=== PATIENT | female | born 1955 | race Hispanic/Latino ===

== ENCOUNTER 2016-12-29 17:40 | Inpatient (IN) | payer BC ==
[2016-12-29 17:42] VITALS: BMI 24.0
[2016-12-29] MEDS ORDERED: Sodium Chloride 0.9% 1,000 ML IV STA (18:01)
[2016-12-29] MEDS ORDERED: Morphine 4 mg/ml ISec IVP STA (18:01)
--- NOTE | 2016-12-29 18:06 | ED PDOC ---
Arrival/HPI - General Chief Complaint: Abdominal Pain Time Seen by Provider: 12/29/16 17:48 Historian: Patient - History of Present Illness Narrative History of Present Illness (Text): 12/29/16 18:02 Patient is a 61 year old female with no abdominal surgical history presents to the emergency department with gradual onset of right sided abdominal pain since 02:00 today. She states pain is constant and getting progressively worse. Patient states she did not eat yesterday. She reports she took PeptoBismol, Tums , and Rolaids with no relief. Patient reports regular bowel movement, solid, non -bloody, at 14:00 today. She is also complaining of nausea. Denies urinary symptoms or back pain. Time/Duration: 24 hours Symptom Onset: Gradual Symptom Course: Worsening Severity Level: Severe Past Medical History - Provider Review Nursing Documentation Reviewed: Yes - Cardiac Hx Cardiac Disorders: No - Pulmonary Hx Respiratory Disorders: No - Neurological Hx Neurological Disorder: No - HEENT Hx HEENT Disorder: No - Renal Hx Renal Disorder: No - Endocrine/Metabolic Hx Hypothyroidism: Yes - Hematological/Oncological Hx Blood Disorders: No - Integumentary Hx Dermatological Disorder: No - Musculoskeletal/Rheumatological Hx Musculoskeletal Disorders: No - Gastrointestinal Hx Gastrointestinal Disorders: No - Genitourinary/Gynecological Hx Genitourinary Disorders: No - Psychiatric Hx Psychophysiologic Disorder: No Hx Substance Use: No - Surgical History Hx Thyroidectomy: Yes Hx Tonsillectomy: Yes - Anesthesia Hx Anesthesia: Yes Hx Anesthesia Reactions: No Hx Malignant Hyperthermia: No Family/Social History - Physician Review Nursing Documentation Reviewed: Yes Family/Social History: Unknown Family HX Smoking Status: Never Smoked Hx Alcohol Use: Yes Frequency of alcohol use: Daily Hx Substance Use: No Allergies/Home Meds Allergies/Adverse Reactions: Allergies Penicillins Allergy (Verified 12/29/16 17:42) RASH Home Medications: Home Meds Medication Instructions Recorded Confirmed Levothyroxine [Synthroid] 100 mcg PO DAILY 12/29/16 12/29/16 Review of Systems - Review of Systems Constitutional: absent: Fevers Eyes: absent: Vision Changes ENT: absent: Hearing Changes Respiratory: absent: SOB Cardiovascular: Chest Pain. absent: Edema, QUICK Gastrointestinal: Abdominal Pain, Nausea. absent: Constipation, Diarrhea, Vomiting, Appetite Changes, Hematochezia, Hematemesis Genitourinary Female: absent: Dysuria, Frequency, Hematuria Musculoskeletal: absent: Back Pain, Neck Pain Skin: absent: Rash Neurological: absent: Headache, Dizziness, Focal Weakness Endocrine: absent: Diaphoresis Physical Exam - Physical Exam Narrative Physical Exam (Text): Head: Atraumatic. Normocephalic. Eyes: PERRL. EOMI. Conjunctivae are not pale. ENT: Mucous membranes are moist and intact. Oropharynx is clear and symmetric. Neck: Supple. Full ROM. No JVD. No lymphadenopathy. Cardiovascular: Regular rate. Regular rhythm. No murmurs, rubs, or gallops. Distal pulses are 2+ and symmetric. Pulse symmetric in both upper extremities. Pulmonary/Chest: No evidence of respiratory distress. Clear to auscultation bilaterally. No wheezing, rales or rhonchi. Abdominal: Non-distended. Rebound and guarding in RLQ and RUQ. No pulsatile masses. Negative Avalos's sign. No hepatomegaly. Positive bowel sounds. Rectal: no gross bleeding reported Back: No CVA tenderness. No midline tenderness. Extremities: No edema. No cyanosis. No clubbing. Full range of motion in all extremities. No calf tenderness. Skin: Skin is pale and diaphoretic. Neurological: Alert, awake, and oriented. Motor and sensory exam intact. No slurred speech. No meningeal signs. Psychiatric: Good eye contact. Normal interaction, affect, and behavior. 12/29/16 21:23 Vital Signs Reviewed: Yes Vital Signs Temp Pulse Resp BP Pulse Ox 12/29/16 19:49 88 17 145/50 L 100 12/29/16 18:58 73 17 148/83 100 12/29/16 18:50 73 17 148/83 100 12/29/16 17:46 97.4 F L 74 15 147/85 100 Temperature: Afebrile Blood Pressure: Normal Pulse: Regular Respiratory Rate: Normal Appearance: Positive for: Uncomfortable Pain Distress: Severe Mental Status: Positive for: Alert and Oriented X 3 Medical Decision Making ED Course and Treatment: Differential Diagnosis include but are not limited to: Appendicitis vs ruptured viscus vs gallstones Plan: Will obtain CT of the Abdomen/Pelvis CT noncontrast, Morphine, Zofran, and emergent surgical consult. Progress Notes: Patient seen immediately upon arrival. Reports sudden onset of abdominal pain at 2 am, did not eat during the day due to lack of appetite. Denies symptoms before going to bed. States abdominal pain will radiate to chest. EKG with no acute st elevations. Chest pain not exertional. No sob. Pain is severe and palpable. Based on exam, surgery emergently consulted and ct ordered. IV morphine ordered, no relief in pain. Pain remains right sided and palpable. No pulsatile masses. IV dilaudid ordered for persistent pain. PROCEDURE: CT Abdomen and Pelvis without Oral or IV contrast. Rolling Down Machine Operator : DR. Shaw, Aria Willis MD Report Date : 12/29/2016 18:41:09 IMPRESSION: Distended gallbladder. No calcified gallstones evident. Correlate clinically for possibility of acute cholecystitis. 3.8 cm right midpole and 3.8 cm left upper pole low-density lesions appear cystic. Nonobstructing 9 x 4 mm right upper pole calculus. Surgery consult present in ED. Dr. Higuera has also evaluated patient in ED. Ultrasound ordered. Lactate elevated. WBC elevated. Initial AST, ALT, alk phos unremarkable. Patient ordered iv fluid bolus, code sepsis called as elevated lactate, wbc, and suspicion of intraabdominal infection. PCN allergy noted, patient started on levaquin and flagyl. Ultrasound ordered. EKG with no acute st changes. Initial troponin unremarkable. Plan to admit to telemetry for sepsis and acute abdomen. Dr. Iglesias consulted for surgery consultation. GI consultation requested. Ultrasound ordered. EXAM: US Abdomen Complete FINDINGS: Gallbladder: Appears mildly dilated. Contains multiple large gallstones. Gallbladder wall measures 4 mm in thickness (normal less than 3 mm) No evidence of pericholecystic fluid. Reportedly negative sonographic Avalos's sign. Common bile duct: Mildly dilated, measuring 7.6 mm (normal less than 6 mm). Liver: Demonstrates mildly increased parenchymal echogenicity, most likely secondary to mild fatty infiltration. Otherwise within normal limits in appearance. Appears normal in size, measuring 13.6 cm in length. Normal flow seen in the main portal vein on color and Doppler imaging. Pancreas: Imaged portions appear unremarkable. Right kidney: Contains a 4 x 3.6 cm simple cystic lesion, located in the renal pelvis, most likely a peripelvic cyst. There is also a 10 x 8 mm nonobstructing right renal stone, located in the mid pole region. Otherwise within normal limits in appearance. Measures 11.2 cm in length. No evidence of hydronephrosis. Left kidney: Contains a 3.6 x 3.3 cm simple appearing cyst, in the upper pole. Otherwise within normal limits in appearance. Measures 11.1 cm in length. No evidence of hydronephrosis. Spleen: Within normal limits in appearance. Measures 10.8 cm in length. Aorta: Imaged portions appear unremarkable. IVC: Imaged portions appear unremarkable. IMPRESSION: Gallstones, associated with minimal gallbladder wall thickening and gallbladder dilatation. No evidence of pericholecystic fluid or a positive sonographic Avalos's sign. The wall thickening could be due to chronic cholecystitis, however, early acute cholecystitis is not excluded entirely, and recommend clinical correlation. Mild dilatation of the common bile duct, cause not identified. Recommend correlation with LFTs for laboratory evidence of biliary obstruction. Otherwise, no evidence of significant acute process. Nonobstructing right renal stone. Bilateral renal cysts. See above for remaining findings. Dictated and Authenticated by: Mulu Salomon MD 12/29/2016 9:00 PM Eastern Time ([place] & [place]) Ultrasound findings and labs and exam reviewed with Dr. Higuera, and I discussed case directly with GI Dr. Siu. HIDA scan ordered, to be evaluated by GI and surgical team. Patient admitted, treatment plan reviewed with patient. - Lab Interpretations Microbiology Results: Microbiology Results 12/29/16 18:30 Blood Blood Culture - Preliminary NO GROWTH AFTER 3 DAYS 12/29/16 18:00 Blood Blood Culture - Preliminary NO GROWTH AFTER 3 DAYS 12/29/16 19:19 Urine Urine Culture - Final Escherichia Coli Lab Results: 12/29/16 18:00 12/29/16 18:00 Lab Results 12/29/16 19:19: Urine Color Yellow, Urine Appearance Sl cloudy, Urine pH 8.0, Ur Specific [place] 1.020, Urine Protein Negative, Urine Glucose (UA) Negative, Urine Ketones 40 H, Urine Blood Trace-intact H, Urine Nitrate Negative, Urine Bilirubin Negative, Urine Urobilinogen 0.2, Ur Leukocyte Esterase Trace H, Urine RBC 0 - 2, Urine WBC 0 - 2, Ur Epithelial Cells 3 - 4, Urine Bacteria Large 12/29/16 18:00: Sodium 139, Chloride 100, Potassium 3.4 L, Carbon Dioxide 23, Anion Gap 19, BUN 12, Creatinine 0.7, Est GFR ( Amer) > 60, Est GFR (Non- Af Amer) > 60, Random Glucose 144 H, Calcium 10.4, Phosphorus 2.6, Magnesium 1.6 L, Total Bilirubin 1.7 H, AST 24, ALT 28, Alkaline Phosphatase 104, Lactate Dehydrogenase 364, Total Creatine Kinase 119, Troponin I < 0.01, Total Protein 7.8, Albumin 5.0 H, Globulin 2.9, Albumin/Globulin Ratio 1.7, Amylase 69, Lipase 25 12/29/16 18:00: pO2 57 H, VBG pH 7.54 H, VBG pCO2 31.0 L, VBG HCO3 26.5, VBG Total CO2 27.5, VBG O2 Sat (Calc) 94.4 H, VBG Base Excess 4.5 H, VBG Potassium 3.4 L, Sodium 140.0, Chloride 103.0, Glucose 151 H, Lactate 2.6 H, FiO2 21.0, Venous Blood Potassium 3.4 L 12/29/16 18:00: PT 12.5 H, INR 1.16 H, APTT 28.0 12/29/16 18:00: WBC 14.2 H, RBC 3.94, Hgb 13.4, Hct 37.9, MCV 96.2, MCH 34.0, MCHC 35.4, RDW 12.5, Plt Count 212, MPV 9.8, Gran % 72.6 H, Lymph % (Auto) 23.5 , [place] % (Auto) 3.8, Eos % (Auto) 0.0 L, Baso % (Auto) 0.1, Gran # 10.31 H, Lymph # 3.3, [place] # 0.5, Eos # 0.0, Baso # 0.01 - RAD Interpretation Radiology Orders: 12/29/16 18:00 CHEST PORTABLE [RAD] Stat 12/29/16 18:11 ABD & PELVIS W/O PO OR IV CONT [CT] Stat 12/29/16 18:53 ABDOMEN COMPLETE [US] Stat Campus Manager: Radiologist - EKG Interpretation EKG Interpretation (Text): 12/29/16 21:25 EKG at 18:19 normal sinus rhythm rate of 72 Interpreted by ED Physician: Yes Type: 12 lead EKG - Medication Orders Current Medication Orders: Enoxaparin Sodium (Lovenox) 40 mg SC DAILY INÉS PRN Reason: Protocol Hydromorphone HCl (Dilaudid) 0.5 mg IVP Q4H PRN PRN Reason: Pain, Mild (1-3) Last Admin: 01/01/17 05:15 Dose: 0.5 mg Re-Assess: [facility] Pain Assessment Document 01/01/17 06:15 AE (Rec: 01/01/17 06:37 AE [id number]) Pain Reassessment Is this a pain reassessment? Yes Sleep Is patient sleeping during reassessment? Yes Hydromorphone HCl (Dilaudid) 1 mg IVP Q4H PRN PRN Reason: Pain, moderate (4-7) Last Admin: 01/02/17 04:12 Dose: 1 mg Re-Assess: [facility] Pain Assessment Document 01/02/17 05:12 HD (Rec: 01/02/17 07:17 HD [id number]) Pain Reassessment Is this a pain reassessment? Yes Sleep Is patient sleeping during reassessment? No Presence of Pain Presence of Pain No Meropenem 1g/NS 100mL IVPB (Meropenem 1g/Ns 100ml Ivpb) 1 gm in 100 mls @ 100 mls/hr IVPB Q8 INÉS PRN Reason: Protocol Stop: 01/09/17 13:09 Last Admin: 01/02/17 07:23 Dose: 100 mls/hr Lactated Ringer's (Lactated Ringer's) 1,000 mls @ 100 mls/hr IV .Q10H [facility] Last Admin: 01/02/17 05:05 Dose: 100 mls/hr Levothyroxine Sodium (Synthroid) 100 mcg PO 0600 [facility] Last Admin: 01/02/17 05:10 Dose: 100 mcg Metoclopramide HCl (Reglan) 10 mg IVP Q6 PRN PRN Reason: Nausea/Vomiting Ondansetron HCl (Zofran Inj) 4 mg IVP Q4H PRN PRN Reason: Nausea/Vomiting Pantoprazole Sodium (Protonix Inj) 40 mg IVP DAILY [facility] Last Admin: 01/01/17 09:19 Dose: 40 mg Discontinued Medications Bupivacaine HCl (Marcaine 0.5%) Confirm Administered Dose 30 ml .ROUTE .STK-MED ONE Stop: 01/01/17 14:41 Last Admin: 01/01/17 17:31 Dose: 30 ml Famotidine (Pepcid) 20 mg IVP STAT STA Stop: 12/29/16 19:37 Last Admin: 12/29/16 21:14 Dose: 20 mg Fentanyl (Fentanyl) Confirm Administered Dose 100 mcg .ROUTE .STK-MED ONE Stop: 01/01/17 15:11 Fentanyl (Fentanyl) Confirm Administered Dose 100 mcg .ROUTE .STK-MED ONE Stop: 01/01/17 16:54 Glycopyrrolate (Robinul) Confirm Administered Dose 0.6 mg .ROUTE .STK-MED ONE Stop: 01/01/17 17:32 Hydromorphone HCl (Dilaudid) 1 mg IVP STAT STA Stop: 12/29/16 18:21 Last Admin: 12/29/16 18:24 Dose: 1 mg Re-Assess: [facility] Pain Assessment Document 12/29/16 19:24 OCS (Rec: 12/29/16 22:02 [id number] Pain Reassessment Is this a pain reassessment? Yes Sleep Is patient sleeping during reassessment? Yes Hydromorphone HCl (Dilaudid) 1 mg IVP STAT STA Stop: 12/29/16 18:48 Last Admin: 12/29/16 18:56 Dose: 1 mg Re-Assess: [facility] Pain Assessment Document 12/29/16 19:56 OCS (Rec: 12/29/16 22:02 [id number][facility] Pain Reassessment Is this a pain reassessment? Yes Sleep Is patient sleeping during reassessment? Yes Hydromorphone HCl (Dilaudid) 2 mg IVP STAT STA Stop: 12/29/16 19:32 Last Admin: 12/29/16 19:46 Dose: 2 mg Re-Assess: [facility] Pain Assessment Document 12/29/16 20:46 OCS (Rec: 12/29/16 22:02 [id number][facility] Pain Reassessment Is this a pain reassessment? Yes Sleep Is patient sleeping during reassessment? Yes Hydromorphone HCl (Dilaudid) 0.5 mg IVP Q15M PRN PRN Reason: Pain, moderate (4-7) Stop: 01/01/17 19:45 Last Admin: 01/01/17 18:20 Dose: 0.5 mg Re-Assess: [facility] Pain Assessment Document 01/01/17 19:20 HD (Rec: 01/02/17 07:17 HD [id number]) Pain Reassessment Is this a pain reassessment? Yes Sleep Is patient sleeping during reassessment? No Presence of Pain Presence of Pain No Sodium Chloride (Sodium Chloride 0.9%) 1,000 mls @ 1,000 mls/hr IV .Q1H ST[facility] Stop: 12/29/16 19:00 Last Admin: 12/29/16 18:23 Dose: 1,000 mls/hr Sodium Chloride 1,910 ml/ IV (SUPPLIES) 1,910 mls @ 3,810.18 mls/hr IV ONCE ONE PRN Reason: 60 ML/KG/HR Stop: 12/29/16 18:31 Last Admin: 12/29/16 19:06 Dose: 3,810.18 mls/hr Metronidazole (Flagyl) 500 mg in 100 mls @ 100 mls/hr IVPB STAT STA PRN Reason: Protocol Stop: 12/29/16 19:46 Last Admin: 12/29/16 18:58 Dose: 100 mls/hr Levofloxacin/Dextrose (Levaquin 750mg) 750 mg in 150 mls @ 100 mls/hr IVPB STAT STA Stop: 12/29/16 20:18 Last Admin: 12/29/16 21:14 Dose: 100 mls/hr Levofloxacin/Dextrose (Levaquin 500mg) 500 mg in 100 mls @ 100 mls/hr IVPB DAILY INÉS Last Admin: 12/30/16 09:18 Dose: 100 mls/hr Metronidazole (Flagyl) 500 mg in 100 mls @ 100 mls/hr IVPB Q8 INÉS PRN Reason: Protocol Last Admin: 12/30/16 06:55 Dose: 100 mls/hr Potassium Chloride (Potassium Chloride 10 Meq/100 Ml) 10 meq in 100 mls @ 100 mls/hr IVPB ONCE ONE Stop: 12/29/16 22:09 Last Admin: 12/29/16 21:54 Dose: 100 mls/hr Aztreonam (Azactam 1 Gm) 100 mls @ 100 mls/hr IV Q8 INÉS PRN Reason: Protocol Stop: 01/08/17 22:01 Last Admin: 12/30/16 06:55 Dose: 100 mls/hr Potassium Chloride 20 meq/ (Sodium Chloride) 1,010 mls @ 100 mls/hr IV .Q10H6M [facility] Stop: 12/30/16 20:56 Last Admin: 12/30/16 11:45 Dose: 100 mls/hr Sodium Chloride (Sodium Chloride 0.9%) 1,000 mls @ 75 mls/hr IV .[id number] [facility] Stop: 01/01/17 19:46 Last Admin: 01/01/17 19:00 Dose: Iohexol (Omnipaque 240 (50 Ml)) Confirm Administered Dose 50 ml .ROUTE .STK-MED ONE Stop: 12/29/16 18:12 Iohexol (Omnipaque 350 100 Ml) Confirm Administered Dose 350 mg .ROUTE .STK-MED ONE Stop: 12/29/16 18:12 Iohexol (Omnipaque 240 (50 Ml)) Confirm Administered Dose 50 ml .ROUTE .STK-MED ONE Stop: 01/01/17 14:41 Last Admin: 01/01/17 17:32 Dose: 20 ml Ketorolac Tromethamine (Toradol) 15 mg IVP STAT STA Stop: 12/30/16 00:33 Last Admin: 12/30/16 01:19 Dose: 15 mg Levothyroxine Sodium (Synthroid) 100 mcg PO DAILY [facility] Last Admin: 01/01/17 09:19 Dose: 100 mcg Metoclopramide HCl (Reglan) 10 mg IVP STAT STA Stop: 12/29/16 22:28 Last Admin: 12/30/16 00:20 Dose: 10 mg Midazolam HCl (Versed Inj) Confirm Administered Dose 2 mg .ROUTE .STK-MED ONE Stop: 01/01/17 15:11 Morphine Sulfate (Morphine) 4 mg IVP STAT STA Stop: 12/29/16 18:02 Last Admin: 12/29/16 18:22 Dose: 4 mg Re-Assess: [facility] Pain Assessment Document 12/29/16 19:22 OCS (Rec: 12/29/16 22:01 OCS [id number]) Pain Reassessment Is this a pain reassessment? Yes Sleep Is patient sleeping during reassessment? Yes Presence of Pain Presence of Pain No Neostigmine Methylsulfate (Neostigmine Methylsulfate) Confirm Administered Dose 3 mg IV .STK-MED ONE Stop: 01/01/17 17:40 Ondansetron HCl (Zofran Inj) 4 mg IVP ONCE ONE Stop: 12/29/16 18:02 Last Admin: 12/29/16 18:23 Dose: 4 mg Ondansetron HCl (Zofran Inj) 4 mg IVP ONCE ONE Stop: 12/29/16 18:57 Last Admin: 12/29/16 18:59 Dose: 4 mg Ondansetron HCl (Zofran Inj) 4 mg IVP Q6 PRN PRN Reason: Nausea/Vomiting Last Admin: 12/29/16 21:54 Dose: 4 mg Ondansetron HCl (Zofran Inj) 4 mg IVP ONCE PRN PRN Reason: Nausea/Vomiting Stop: 01/01/17 23:50 Phenylephrine HCl (Phenylephrine Inj) Confirm Administered Dose 10 mg .ROUTE .STK-MED ONE Stop: 01/01/17 15:46 Propofol (Diprivan) Confirm Administered Dose 200 mg .ROUTE .STK-MED ONE Stop: 01/01/17 15:11 Rocuronium [place] (Zemuron) Confirm Administered Dose 50 mg .ROUTE .STK-MED ONE Stop: 01/01/17 15:12 Succinylcholine Chloride (Quelicin) Confirm Administered Dose 200 mg IV .STK- MED ONE Stop: 01/01/17 15:12 - Scribe Statement The provider has reviewed the documentation as recorded by the Ashlee Montgomery Provider Scribe Attestation: All medical record entries made by the [place]rib[place]ix were at my direction and personally dictated by me. I have reviewed the chart and agree that the record accurately reflects my personal performance of the history, physical exam, medical decision making, and the department course for this patient. I have also personally directed, reviewed, and agree with the discharge instructions and disposition. Disposition/Present on Arrival - Present on Arrival Any Indicators Present on Arrival: No History of DVT/PE: No History of Uncontrolled Diabetes: No Urinary Catheter: No History of Decub. Ulcer: No History Surgical Site Infection Following: None - Disposition Have Diagnosis and Disposition been Completed?: Yes Diagnosis: Cholecystitis, Abdominal pain, Sepsis Disposition: HOSPITALIZED Disposition Time: 20:00 Patient Plan: Admission, Telemetry Patient Problems: Current Active Problems Problem Status Onset Abdominal pain Acute Cholecystitis Acute Sepsis Acute Condition: SERIOUS
[2016-12-29] MEDS ORDERED: Iohexol 240 (50 ml) ONE (18:11)
[2016-12-29] MEDS ORDERED: Iohexol 350 MG/100 ML VIAL ONE (18:11)
[2016-12-29 18:15] LABS: ADD MANUAL DIFF? NO
[2016-12-29 18:19] LABS: VENOUS BLOOD GAS BASE EXCESS 4.5 mmol/L (0.0-2.0); VENOUS BLOOD PH 7.54 (7.32-7.43)
[2016-12-29] MEDS ORDERED: HYDROmorphone 1 mg/ml ISec IVP STA ×2 (18:20→18:47)
[2016-12-29 18:23] LABS: BASO # 0.01 K/mm3 (0.0-2.0); BASO % 0.1 % (0.0-3.0); GRAN # 10.31 (1.4-6.5); GRAN % 72.6 % (50.0-68.0); HEMATOCRIT 37.9 % (36.0-48.0); LYMPH # 3.3 (1.2-3.4); LYMPH % 23.5 % (22.0-35.0); MEAN CELL VOLUME 96.2 fL (80.0-105.0); MEAN CORPUSCULAR HGB CONC 35.4 g/dl (31.0-37.0); MEAN PLATELET VOLUME 9.8 fl (7.0-11.0); MONO # 0.5 (0.1-0.6); MONO % 3.8 % (1.0-6.0); PLATELET COUNT 212 10^3/uL (120.0-450.0); RED CELL DISTRIBUTION WIDTH 12.5 % (11.5-14.5); WHITE BLOOD COUNT 14.2 10^3/ul (4.5-11.0)
[2016-12-29 18:28] LABS: ALB/GLOB RATIO 1.7 (1.1-1.8); ALKALINE PHOSPHATASE 104 U/L (38-133); ALT/SGPT 28 U/L (7-56); AMYLASE 69 U/L (35-125); AST/SGOT 24 U/L (15-39); BILIRUBIN,TOTAL 1.7 mg/dL (0.2-1.3); BLOOD UREA NITROGEN 12 mg/dL (7-21); CALCIUM 10.4 mg/dL (8.4-10.5); CARBON DIOXIDE 23 mmol/L (21-33); GFR AFRICAN-AMERICAN > 60; GLUCOSE,RANDOM 144 mg/dL (70-110); LIPASE 25 U/L (23-300); SODIUM 139 mmol/L (132-148); TOTAL PROTEIN 7.8 g/dL (5.8-8.3)
[2016-12-29 18:29] LABS: CHLORIDE 100 mmol/L (98-107); POTASSIUM 3.4 mmol/L (3.6-5.0)
[2016-12-29 18:30] LABS: INR 1.16 (0.93-1.08)
[2016-12-29 18:39] LABS: TROPONIN I < 0.01 ng/mL
--- NOTE | 2016-12-29 18:42 | CT ---
PROCEDURE: CT Abdomen and Pelvis without Oral or IV contrast. HISTORY: acute abdomen, rlq pain COMPARISON: None available TECHNIQUE: Contiguous axial images of the abdomen and pelvis. No oral or IV contrast administered. Coronal and Sagittal reformats generated and reviewed. Radiation dose: Total exam DLP = 279.60 mGy-cm. This CT exam was performed using one or more of the following dose reduction techniques: Automated exposure control, adjustment of the mA and/or kV according to patient size, and/or use of iterative reconstruction technique. FINDINGS: There is limited evaluation of the solid organs without the administration of IV contrast. LOWER THORAX: No visible consolidation, pleural effusion, or pneumothorax. LIVER: Unremarkable unenhanced appearance. GALLBLADDER AND BILE DUCTS: Distended gallbladder. No calcified gallstones evident. PANCREAS: Unremarkable unenhanced appearance. SPLEEN: Unremarkable unenhanced appearance. ADRENALS: Unremarkable unenhanced appearance. KIDNEYS AND URETERS: No hydronephrosis or obstructing renal calculus. 3.8 cm right midpole and 3.8 cm left upper pole low-density lesions appear cystic. Nonobstructing 9 x 4 mm right upper pole calculus. BLADDER: The urinary bladder appears unremarkable. REPRODUCTIVE: Uterus is present. APPENDIX: The appendix appears within normal limits of caliber. No secondary signs of acute appendicitis. BOWEL: The stomach is nondistended. Small amount of high density material within the stomach, presumably minimal ingested oral contrast. Lack of oral contrast limits evaluation for bowel pathology. The bowel loops appear within normal limits of caliber without evidence of intestinal obstruction. PERITONEUM: No significant free fluid. No definite free air. LYMPH NODES: No bulky lymphadenopathy identified. VASCULATURE: No aortic aneurysm. BONES: No acute osseous abnormality is detected. OTHER FINDINGS: None. IMPRESSION: Distended gallbladder. No calcified gallstones evident. Correlate clinically for possibility of acute cholecystitis. 3.8 cm right midpole and 3.8 cm left upper pole low-density lesions appear cystic. Nonobstructing 9 x 4 mm right upper pole calculus.
[2016-12-29 18:45] LABS: MAGNESIUM 1.6 mg/dL (1.7-2.2); PHOSPHOROUS 2.6 mg/dL (2.5-4.5)
[2016-12-29] MEDS ORDERED: metroNIDAZOLE IV 500 mg/100 ml 500 MG/100 ML BAG IVPB STA (18:47)
[2016-12-29] MEDS ORDERED: levoFLOXacin 750 mg in D5W 750 MG/150 ML BAG IVPB STA (18:49)
[2016-12-29] MEDS ORDERED: HYDROmorphone 2 mg/ml ISec IVP STA (19:31)
[2016-12-29 19:33] LABS: URINE BILIRUBIN NEGATIVE (NEGATIVE); URINE BLOOD TRACE-INTACT (NEGATIVE); URINE GLUCOSE (UA) NEGATIVE (NEGATIVE); URINE KETONE 40 mg/dL (NEGATIVE); URINE LEUKOCYTE ESTERASE TRACE Leu/uL (NEGATIVE); URINE PROTEIN NEGATIVE mg/dL (<30 mg/dL); URINE UROBILINOGEN 0.2 E.U./dL (<1 E.U./dL)
[2016-12-29 19:34] LABS: URINE APPEARANCE SL CLOUDY (CLEAR); URINE COLOR YELLOW (YELLOW)
--- NOTE | 2016-12-29 20:17 | CP.PCM.CON ---
History of Present Illness - History of Present Illness History of Present Illness: General Surgery consult note for Dr. Iglesias Consulted for: R abdominal pain, nausea, vomiting Pt is a 61 F with PMH of hypothyroidism and PSH of thyroidectomy and tonsillectomy who presented to the ER with abdominal pain, nausea, and vomiting. Patient state that yesterday she had malaise and loss of appetite. 2AM today she woke up with a "stomach ache." She took peptobismol which did not help. This afternoon patient had nausea and nb/nb emesis and the pain became severe. Patient states that at first the pain was diffuse and now it is localized to the right abdomen, worst in the RUQ. Patient states she feel febrile, but denies any diarrhea, constipation, melena, hematochezia, back pain , hematuria, or dysuria. Patient has received several doses of morphine and zofran but still is having severe pain and nausea with an episode of emesis in the ER. Patient also complaining of chest tightness. Patient has never had an episode like this previously. Patient's last meal was 2 days ago. Afebrile, normocardic, normotensive CT showed a distended, possibly inflamed gall bladder, an appendix of borderline caliber without surrounding inflammation, and a cyst in the right kidney WBC: 14.2, lactate 2.6, total bilirubin 1.7, but other LFT's wnl PMH: hypothyroidism, thyroid cancer PSH: tonsilectomy, thryoidectomy ALL: PCN Review of Systems - Review of Systems All systems: reviewed and no additional remarkable complaints except (as per HPI ) - Constitutional Constitutional: As Per HPI, Fever, Malaise - Cardiovascular Cardiovascular: Chest Pain, Chest Pain at Rest. absent: Dyspnea, Pain Radiating to Arm/Neck/Jaw - Respiratory Respiratory: absent: Cough, Dyspnea, Wheezing - Gastrointestinal Gastrointestinal: As Per HPI, Abdominal Pain - Genitourinary Genitourinary: As Per HPI - Neurological Neurological: absent: Numbness, Tingling - Endocrine Endocrine: absent: Polyuria Past Patient History - Past Medical History & Family History Past Medical History?: Yes Past Family History: Reviewed and not pertinent - Past Social History Smoking Status: Never Smoked - CARDIAC Hx Cardiac Disorders: No - PULMONARY Hx Respiratory Disorders: No - NEUROLOGICAL Hx Neurological Disorder: No - HEENT Hx HEENT Problems: No - RENAL Hx Chronic Kidney Disease: No - ENDOCRINE/METABOLIC Hx Hypothyroidism: Yes - HEMATOLOGICAL/ONCOLOGICAL Hx Blood Disorders: No - INTEGUMENTARY Hx Dermatological Problems: No - MUSCULOSKELETAL/RHEUMATOLOGICAL Hx Musculoskeletal Disorders: No - GASTROINTESTINAL Hx Gastrointestinal Disorders: No - GENITOURINARY/GYNECOLOGICAL Hx Genitourinary Disorders: No - PSYCHIATRIC Hx Psychophysiologic Disorder: No Hx Substance Use: No - SURGICAL HISTORY Hx Thyroidectomy: Yes Hx Tonsillectomy: Yes - ANESTHESIA Hx Anesthesia: Yes Hx Anesthesia Reactions: No Hx Malignant Hyperthermia: No Meds Allergies/Adverse Reactions: Allergies Allergy/AdvReac Type Severity Reaction Status Date / Time Penicillins Allergy RASH Verified 12/29/16 17:42 - Medications Medications: Current Medications Levofloxacin/Dextrose (Levaquin 750mg) 750 mg in 150 mls @ 100 mls/hr IVPB STAT STA Stop: 12/29/16 20:18 Physical Exam - Constitutional Appears: In Acute Distress - Head Exam Head Exam: ATRAUMATIC, NORMOCEPHALIC - Eye Exam Eye Exam: Normal appearance. absent: Conjunctival injection, Scleral icterus - ENT Exam ENT Exam: Mucous Membranes Moist, Normal Oropharynx - Respiratory Exam Respiratory Exam: NORMAL BREATHING PATTERN. absent: Accessory Muscle Use, Respiratory Distress - Cardiovascular Exam Cardiovascular Exam: RRR - GI/Abdominal Exam GI & Abdominal Exam: Guarding (RUQ), Soft, Tenderness (Tenderness to mild palpation RUQ>RLQ>LLQ). absent: Distended Additional comments: no rebound tenderness - Extremities Exam Extremities exam: Positive for: pedal pulses present. Negative for: calf tenderness, pedal edema - Neurological Exam Neurological exam: Alert, Oriented x3 - Psychiatric Exam Psychiatric exam: Anxious, Normal Affect - Skin Skin Exam: Dry, Intact, Normal Color, Warm Results - Vital Signs Recent Vital Signs: Last Vital Signs Temp 97.4 F L 12/29/16 17:46 Pulse 73 12/29/16 18:50 Resp 17 12/29/16 18:50 BP 148/83 12/29/16 18:50 Pulse Ox 100 12/29/16 18:50 - Labs Result Diagrams: 12/29/16 18:00 12/29/16 18:00 Assessment & Plan - Assessment and Plan (Free Text) Assessment: 61F with severe abdominal pain, nausea, and vomiting -afebrile, normocardic, normotensive -Severe tenderness in the RUQ, but soft, without rebound tenderness -leukocytosis, lactic acidosis, elevated bilirubin -CT: distended gallbladder with possible inflammation, no stones, appendix upper range of normal caliber without surrounding inflammation, R renal cyst Plan: -Abdominal US -analgesics, anti-emetics -IVF -antibiotics -Surgical intervention plans pending abdominal US Thank you for the pleasure of this consult Further recs per Dr. Harris Augustine, PGY-9
[2016-12-29 20:21] LABS: URINE BACTERIA LARGE (NEG); URINE RBC 0 - 2 /hpf (0-2); URINE WBC 0 - 2 /hpf (0-6)
--- NOTE | 2016-12-29 21:00 | US ---
EXAM: US Abdomen Complete CLINICAL HISTORY: 61 years old, female; Pain; Abdominal pain; Additional info: Abdominal pain, possible cholecystitis TECHNIQUE: Real-time ultrasound of the abdomen (complete) with image documentation. EXAM DATE/TIME: 12/29/2016 6:53 PM COMPARISON: Recent CT abdomen 12/29/2016 6:22:40 PM FINDINGS: Gallbladder: Appears mildly dilated. Contains multiple large gallstones. Gallbladder wall measures 4 mm in thickness (normal less than 3 mm) No evidence of pericholecystic fluid. Reportedly negative sonographic Avalos's sign. Common bile duct: Mildly dilated, measuring 7.6 mm (normal less than 6 mm). Liver: Demonstrates mildly increased parenchymal echogenicity, most likely secondary to mild fatty infiltration. Otherwise within normal limits in appearance. Appears normal in size, measuring 13.6 cm in length. Normal flow seen in the main portal vein on color and Doppler imaging. Pancreas: Imaged portions appear unremarkable. Right kidney: Contains a 4 x 3.6 cm simple cystic lesion, located in the renal pelvis, most likely a peripelvic cyst. There is also a 10 x 8 mm nonobstructing right renal stone, located in the mid pole region. Otherwise within normal limits in appearance. Measures 11.2 cm in length. No evidence of hydronephrosis. Left kidney: Contains a 3.6 x 3.3 cm simple appearing cyst, in the upper pole. Otherwise within normal limits in appearance. Measures 11.1 cm in length. No evidence of hydronephrosis. Spleen: Within normal limits in appearance. Measures 10.8 cm in length. Aorta: Imaged portions appear unremarkable. IVC: Imaged portions appear unremarkable. IMPRESSION: Gallstones, associated with minimal gallbladder wall thickening and gallbladder dilatation. No evidence of pericholecystic fluid or a positive sonographic Avalos's sign. The wall thickening could be due to chronic cholecystitis, however, early acute cholecystitis is not excluded entirely, and recommend clinical correlation. Mild dilatation of the common bile duct, cause not identified. Recommend correlation with LFTs for laboratory evidence of biliary obstruction. Otherwise, no evidence of significant acute process. Nonobstructing right renal stone. Bilateral renal cysts. See above for remaining findings.
[2016-12-29 21:51] LABS: VENOUS BLOOD GAS BASE EXCESS -0.5 mmol/L (0.0-2.0); VENOUS BLOOD PH 7.35 (7.32-7.43)
[2016-12-30] MEDS: metroNIDAZOLE IV 500 mg/100 ml 500 MG/100 ML BAG IVPB SCH ×2 (00:20→06:55)
[2016-12-30] MEDS: Aztreonam 1 Gm in NS 100mL 100 ML IV SCH ×2 (00:21→06:55)
--- NOTE | 2016-12-30 06:07 | CP.PCM.PN ---
Subjective - Date & Time of Evaluation Date of Evaluation: 12/30/16 Time of Evaluation: 05:00 - Subjective Subjective: Patient seen and examined at bedside. Patient sleeping comfortably when I entered the room. NADIAO since admit. Patient states that she is feeling much better after a dose of toradol and reglan, her pain is decreased and her nausea has resolved. Patient denies any further vomiting, any fevers, chills, diarrhea , chest pain, or SOB Objective - Vital Signs/Intake and Output Vital Signs (last 24 hours): Temp Pulse Resp BP Pulse Ox 98.2 F 78 22 160/94 H 100 12/30/16 00:01 12/30/16 02:00 12/30/16 00:01 12/30/16 00:01 12/29/16 19:49 Intake and Output: 12/29/16 12/30/16 18:59 06:59 Intake Total 440 Balance 440 - Medications Medications: Current Medications Hydromorphone HCl (Dilaudid) 0.5 mg IVP Q4H PRN PRN Reason: Pain, Mild (1-3) Levofloxacin/Dextrose (Levaquin 500mg) 500 mg in 100 mls @ 100 mls/hr IVPB DAILY [facility] Metronidazole (Flagyl) 500 mg in 100 mls @ 100 mls/hr IVPB Q8 [facility] PRN Reason: Protocol Last Admin: 12/30/16 00:20 Dose: 100 mls/hr Aztreonam (Azactam 1 Gm) 100 mls @ 100 mls/hr IV Q8 [facility] PRN Reason: Protocol Stop: 01/08/17 22:01 Last Admin: 12/30/16 00:21 Dose: 100 mls/hr Potassium Chloride 20 meq/ (Sodium Chloride) 1,010 mls @ 100 mls/hr IV .Q10H6M [facility] Stop: 12/30/16 20:56 Last Admin: 12/30/16 01:15 Dose: 100 mls/hr Levothyroxine Sodium (Synthroid) 100 mcg PO DAILY [facility] Metoclopramide HCl (Reglan) 10 mg IVP Q6 PRN PRN Reason: Nausea/Vomiting Pantoprazole Sodium (Protonix Inj) 40 mg IVP DAILY [facility] - Labs Labs: PT 12.5 Seconds (9.9-11.8) H 12/29/16 18:00 INR 1.16 (0.93-1.08) H 12/29/16 18:00 APTT 28.0 Seconds (23.7-30.8) 12/29/16 18:00 - Constitutional Appears: Well, Non-toxic, No Acute Distress - Head Exam Head Exam: ATRAUMATIC, NORMOCEPHALIC - Eye Exam Eye Exam: Normal appearance. absent: Conjunctival injection, Scleral icterus - ENT Exam ENT Exam: Mucous Membranes Moist, Normal Oropharynx - Respiratory Exam Respiratory Exam: NORMAL BREATHING PATTERN. absent: Accessory Muscle Use, Respiratory Distress - Cardiovascular Exam Cardiovascular Exam: RRR - GI/Abdominal Exam GI & Abdominal Exam: Soft, Tenderness (mild tenderness to palpation RLQ>RUQ). absent: Distended, Rebound Additional comments: negative sow's, negative rovsings - Extremities Exam Extremities Exam: Normal Capillary Refill. absent: Calf Tenderness, Pedal Edema , Tenderness - Neurological Exam Neurological Exam: Alert, Awake, Oriented x3 - Psychiatric Exam Psychiatric exam: Normal Affect, Normal Mood - Skin Skin Exam: Dry, Intact, Normal Color, Warm Assessment and Plan - Assessment and Plan (Free Text) Assessment: 61F with severe abdominal pain, nausea, and vomiting -afebrile, normocardic, normotensive -Denies nausea and vomiting -Abdominal exam much improved this AM. -Abdominal US: several large gallstones, mild wall thickening, no gennaro- cholecystic fluid, CBD mildly dilated at 7.6mm Plan: -HIDA scan per GI -f/u AM LFT's, WBC, and lactic acid -analgesics, anti-emetics -NPO -IVF -antibiotics -Surgical intervention plans pending HIDA Discussed with Dr. Harris Augustine, PGY-3
[2016-12-30 07:04] LABS: ADD MANUAL DIFF? NO
[2016-12-30 07:14] LABS: BASO # 0.02 K/mm3 (0.0-2.0); BASO % 0.1 % (0.0-3.0); GRAN # 9.94 (1.4-6.5); GRAN % 71.7 % (50.0-68.0); HEMATOCRIT 35.2 % (36.0-48.0); LYMPH # 2.5 (1.2-3.4); LYMPH % 17.7 % (22.0-35.0); MEAN CELL VOLUME 98.1 fL (80.0-105.0); MEAN CORPUSCULAR HEMOGLOBIN 33.1 pg (25.0-35.0); MEAN CORPUSCULAR HGB CONC 33.8 g/dl (31.0-37.0); MEAN PLATELET VOLUME 9.8 fl (7.0-11.0); MONO # 1.5 (0.1-0.6); MONO % 10.5 % (1.0-6.0); PLATELET COUNT 185 10^3/uL (120.0-450.0); RED CELL DISTRIBUTION WIDTH 12.9 % (11.5-14.5); WHITE BLOOD COUNT 13.9 10^3/ul (4.5-11.0)
[2016-12-30 07:38] LABS: ALB/GLOB RATIO 1.8 (1.1-1.8); ALKALINE PHOSPHATASE 76 U/L (38-133); ALT/SGPT 34 U/L (7-56); AST/SGOT 32 U/L (15-39); BILIRUBIN,DIRECT 0.3 mg/dL (0.0-0.4); BILIRUBIN,TOTAL 1.9 mg/dL (0.2-1.3); BLOOD UREA NITROGEN 10 mg/dL (7-21); CALCIUM 8.4 mg/dL (8.4-10.5); CARBON DIOXIDE 24 mmol/L (21-33); CHLORIDE 99 mmol/L (95-110); GFR AFRICAN-AMERICAN > 60; GLUCOSE,RANDOM 107 mg/dL (70-110); SODIUM 134 mmol/L (132-148); TOTAL PROTEIN 6.7 g/dL (5.8-8.3)
[2016-12-30] MEDS: Levothyroxine 100 MCG TAB PO SCH (09:19)
--- NOTE | 2016-12-30 09:50 | RAD ---
HISTORY: abdominal pain COMPARISON: No prior. FINDINGS: LUNGS: No active pulmonary disease. PLEURA: No significant pleural effusion identified, no pneumothorax apparent. CARDIOVASCULAR: Normal. OSSEOUS STRUCTURES: No significant abnormalities. VISUALIZED UPPER ABDOMEN: Normal. OTHER FINDINGS: None. IMPRESSION: No active disease.
[2016-12-30] MEDS ORDERED: levoFLOXacin 500 mg in D5W 500 MG/100 ML BAG IVPB SCH (10:00)
--- NOTE | 2016-12-30 14:07 | CARD ---
APPROVED REPORT EKG Measurement Heart [id number] <Conclusion> Sinus rhythm with premature atrial complexes Septal infarct, age undetermined Abnormal ECG
[2016-12-30] MEDS: Meropenem 1g/NS 100mL IVPB 1 GM/100 ML PIGGYBACK IVPB SCH ×3 (14:30→21:08)
--- NOTE | 2016-12-30 15:10 | CON ---
DATE: 12/30/2016 The patient was seen earlier this morning in bed in room 260, bed 1. CHIEF COMPLAINT: Abdominal pain x 1 day duration. HISTORY OF PRESENT ILLNESS: This is a 61-year-old female with past medical history significant for d epression, anxiety, posttraumatic stress disorder, osteoarthritis, hypothyroidism, high cholesterol, daily alcohol use, who was admitted through the Emergency Room complaining of abdominal pain. In the Emergency Room, the patient was seen yesterday by Dr. Nayla Ackerman. The patient had stated that abdomi nal pain more lower, abdominal pain with no diarrhea. She did have nausea, but no vomiting, no fever s and no chills and no dysuria, no frequency, no headaches or blurred vision. No chest pain, shortne ss of breath or cough. PAST MEDICAL HISTORY: Significant for depression, anxiety, posttraumatic stress disorder, alcohol ab use, osteoarthritis, hypothyroidism, high cholesterol. PAST SURGICAL HISTORY: Significant for tonsillectomy and thyroidectomy. 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 She is sexually active, same partner for many years. ALLERGIES: SHE IS ALLERGIC TO PENICILLIN. SHE STATES SHE DEVELOPS A RASH. MEDICATIONS AT HOME: Include levothyroxine 100 mcg p.o. once daily. PHYSICAL EXAMINATION: GENERAL: The patient is in bed, no acute distress, answering questions appropriately. VITAL SIGNS: Temperature of 99, heart rate of 97, respiratory rate of 22, blood pressure is 160/90. HEENT: Unremarkable. NECK: Supple. LUNGS: Have decreased breath sounds. HEART: Normal S1, S2. ABDOMEN: Soft, nontender. No rebound, no guarding, no masses. Essentially a benign abdomen and low er pelvic area, mild tenderness. LABORATORY EXAMINATION: Reveals a white count of 14,200, hemoglobin of 13, platelets of 212, AST 72% granulocytosis. Coagulation is noted. Chemistries reveal the BUN of 12, creatinine of 0.7. Urinal ysis is noted. Urine culture, gram-negative kisha, greater than 100,000 colonies, 0-2 WBCs in the urin e and large bacteria. The patient had an ultrasound of the abdomen, which showed dilated gallbladder , multiple stones with common bile duct that is dilated at 7.6 and this was read by Dr. Mulu Saloomn . The patient also had a CAT scan of the abdomen and pelvis, CAT scan of the abdomen showed a dilate d distended gallbladder and the possibility of acute cholecystitis, nonobstructive stone in the right side. ASSESSMENT AND PLAN: A 61-year-old female with past medical history of depression, anxiety, post-tra umatic stress disorder, osteoarthritis, hypothyroidism, high cholesterol, admitted with leukocytosis, tachycardia, dyspnea with abdominal pain and distended gallbladder and gram-negative kisha in the urin e, abdominal pain, pelvic pain, sepsis. IS ALLERGIC TO PENICILLIN. Secondary to acute cholecystitis versus gram-negative kisha cystitis with a gram-negative kisha in the urine. We will treat the patient w ith meropenem, check on the HIDA scan. Check on the identification and sensitivity of the gram-negat rhonda kisha but she has no symptoms of dysuria or frequency. She is having pelvic pain and will repeat a urinalysis and urine culture. The patient is scheduled for a HIDA scan and MRCP. We will treat wit h meropenem since it is only a RASH TO PENICILLIN and we will follow closely with you. Cristian Santos MD cc: [id number] TT: 12/30/2016 15:09:39 Confirmation # [id number] Dictation # [id number] ricky
[2016-12-30 18:16] LABS: URINE BILIRUBIN NEGATIVE (NEGATIVE); URINE BLOOD SMALL (NEGATIVE); URINE GLUCOSE (UA) NEGATIVE (NEGATIVE); URINE KETONE 15 mg/dL (NEGATIVE); URINE LEUKOCYTE ESTERASE NEGATIVE Leu/uL (NEGATIVE); URINE PROTEIN NEGATIVE mg/dL (<30 mg/dL); URINE UROBILINOGEN 0.2 E.U./dL (<1 E.U./dL)
[2016-12-30 18:22] LABS: URINE APPEARANCE CLEAR (CLEAR); URINE COLOR YELLOW (YELLOW)
--- NOTE | 2016-12-30 18:54 | PN ---
DATE: 12/30/2016 SUBJECTIVE: The patient is seen and examined on the bedside, looks comfortable in the telemetry. Pa in is a bit better. Nausea and vomiting is better. No fever, no chills. No headache, no dizziness. No dysuria. No hematuria or hematochezia. PHYSICAL EXAMINATION: VITAL SIGNS: Temperature 98.2, pulse 65, blood pressure 133/82, respiratory rate 20. HEAD: Normocephalic, atraumatic. EYES: PERRLA. Extraocular muscles intact. Conjunctivae are clear. Nose patent. Mucous membranes m oist. NECK: Supple. No carotid bruit, JVD or thyromegaly. CHEST: Bilaterally symmetrical. HEART: S1, S2 positive. LUNGS: Clear to auscultation. ABDOMEN: Soft. Tender in the right lower quadrant. Positive bowel sounds. No organomegaly. EXTREMITIES: No edema, no cyanosis. NEUROLOGIC: The patient is awake, alert, moving all 4 extremities. No focal deficits. MEDICATIONS: Dilaudid, meropenem, potassium, Protonix, Reglan, levothyroxine. LABORATORY DATA: White blood cells 13.2, on admission it was 14.2, hemoglobin 11.9, hematocrit 35.2, platelets 185. Sodium 134, potassium 4.0, BUN 10, creatinine 0.7. Glucose 107. Lactic acid 2.5, m agnesium 1.9. ASSESSMENT AND PLAN: The patient is a 61-year-old lady with leukocytosis, anemia, history of hypokal emia, replaced, abnormal liver function test, increased bilirubin, ketonuria, hematuria, urinary trac t infection, seen by Dr. Santos, infectious disease, with history of depression, anxiety, posttra umatic stress disorder, osteoarthritis, hypothyroidism, hypercholesterolemia, tachycardia, dyspnea wi th abdominal pain, distended gallbladder, gram-negative rods in the urine, sepsis, acute cholecystiti s versus gram-negative kisha cystitis with gram-negative kisha in the urine. The patient is getting jeovany penem by Dr. Santos. Will check on HIDA scan and sensitivity of the cultures. The patient is sc heduled for HIDA scan and MRCP. Reviewed Dr. Dallas Iglesias's notes also. Ultrasound shows several large gallstones, mild wall thickening. No polycystic fluid. Common bile duct mildly distended at 7 .6 mm. Will follow up with liver function tests. Antiemetic, analgesic, n.p.o., IV fluids. Surgica l intervention planned depending on HIDA. Gastrointestinal and deep venous thrombosis prophylaxis. We will follow up. Lashell Higuera MD cc: [id number] TT: 12/30/2016 18:54:06 Confirmation # [id number] Dictation # [id number] rn
[2016-12-30 20:03] LABS: URINE BACTERIA MOD (NEG); URINE WBC 0 - 2 /hpf (0-6)
[2016-12-31] MEDS: Meropenem 1g/NS 100mL IVPB 1 GM/100 ML PIGGYBACK IVPB SCH ×3 (06:33→23:05)
--- NOTE | 2016-12-31 08:14 | CP.PCM.PN ---
Subjective - Date & Time of Evaluation Date of Evaluation: 12/31/16 Time of Evaluation: 08:10 - Subjective Subjective: Surgery: Dr. Iglesias Patient doing well today. She denies pain in the abdomen. Denies n/v/f/c. Objective - Vital Signs/Intake and Output Vital Signs (last 24 hours): Temp Pulse Resp BP Pulse Ox 98.7 F 89 20 117/76 99 12/31/16 06:00 12/31/16 06:00 12/31/16 06:00 12/31/16 06:00 12/30/16 06:00 Intake and Output: 12/31/16 12/31/16 06:59 18:59 Intake Total 520 Output Total 600 Balance -80 - Medications Medications: Current Medications Hydromorphone HCl (Dilaudid) 0.5 mg IVP Q4H PRN PRN Reason: Pain, Mild (1-3) Meropenem 1g/NS 100mL IVPB (Meropenem 1g/Ns 100ml Ivpb) 1 gm in 100 mls @ 100 mls/hr IVPB Q8 [facility] PRN Reason: Protocol Stop: 01/09/17 13:09 Last Admin: 12/31/16 06:33 Dose: 100 mls/hr Levothyroxine Sodium (Synthroid) 100 mcg PO DAILY [facility] Last Admin: 12/30/16 09:19 Dose: 100 mcg Metoclopramide HCl (Reglan) 10 mg IVP Q6 PRN PRN Reason: Nausea/Vomiting Pantoprazole Sodium (Protonix Inj) 40 mg IVP DAILY [facility] Last Admin: 12/30/16 09:19 Dose: 40 mg - Labs Labs: 12/30/16 07:02 12/30/16 07:02 PT 12.5 Seconds (9.9-11.8) H 12/29/16 18:00 INR 1.16 (0.93-1.08) H 12/29/16 18:00 APTT 28.0 Seconds (23.7-30.8) 12/29/16 18:00 - Constitutional Appears: Non-toxic, No Acute Distress - Head Exam Head Exam: ATRAUMATIC, NORMOCEPHALIC - Eye Exam Eye Exam: EOMI, Normal appearance - ENT Exam ENT Exam: Mucous Membranes Moist - Respiratory Exam Respiratory Exam: NORMAL BREATHING PATTERN. absent: Respiratory Distress - Cardiovascular Exam Cardiovascular Exam: REGULAR RHYTHM. absent: Tachycardia - GI/Abdominal Exam GI & Abdominal Exam: Soft. absent: Distended, Tenderness Assessment and Plan - Assessment and Plan (Free Text) Assessment: 61 y/o female w/ cholecystitis r/o choledocholithiasis Plan: -f/u MRCP and HIDA -ok for CLD, NPO pmn tonight -f/u am labs -trend bili -possible OR in am pending above studies -further recs per Dr. Harris Tello PGY1
[2016-12-31 08:41] LABS: ADD MANUAL DIFF? NO
[2016-12-31] MEDS: HYDROmorphone 0.5 mg/0.5 ml ISec IVP PRN ×2 (08:50→17:29)
[2016-12-31 08:51] LABS: BASO # 0.03 K/mm3 (0.0-2.0); BASO % 0.2 % (0.0-3.0); EOS # 0.1 (0.0-0.7); EOS % 0.6 % (1.5-5.0); GRAN # 7.64 (1.4-6.5); GRAN % 58.5 % (50.0-68.0); HEMATOCRIT 38.3 % (36.0-48.0); LYMPH # 4.6 (1.2-3.4); LYMPH % 35.2 % (22.0-35.0); MEAN CELL VOLUME 99.2 fL (80.0-105.0); MEAN CORPUSCULAR HEMOGLOBIN 33.9 pg (25.0-35.0); MEAN CORPUSCULAR HGB CONC 34.2 g/dl (31.0-37.0); MEAN PLATELET VOLUME 9.9 fl (7.0-11.0); MONO # 0.7 (0.1-0.6); MONO % 5.5 % (1.0-6.0); PLATELET COUNT 181 10^3/uL (120.0-450.0); WHITE BLOOD COUNT 13.1 10^3/ul (4.5-11.0)
[2016-12-31 08:56] LABS: ALB/GLOB RATIO 1.6 (1.1-1.8); ALKALINE PHOSPHATASE 73 U/L (38-133); ALT/SGPT 31 U/L (7-56); AST/SGOT 28 U/L (15-39); BILIRUBIN,TOTAL 2.1 mg/dL (0.2-1.3); BLOOD UREA NITROGEN 9 mg/dL (7-21); CALCIUM 8.8 mg/dL (8.4-10.5); CARBON DIOXIDE 25 mmol/L (21-33); CHLORIDE 104 mmol/L (98-107); GFR AFRICAN-AMERICAN > 60; GLUCOSE,RANDOM 111 mg/dL (70-110); POTASSIUM 3.5 mmol/L (3.6-5.0); SODIUM 138 mmol/L (132-148); TOTAL PROTEIN 6.9 g/dL (5.8-8.3)
[2016-12-31] MEDS: Levothyroxine 100 MCG TAB PO SCH (09:16)
--- NOTE | 2016-12-31 11:05 | MRI ---
PROCEDURE: Magnetic Resonance Cholangiopancreatography HISTORY: Rule out common duct stone COMPARISON: None available. TECHNIQUE: Multiplanar, multisequence MR images of the abdomen were obtained, including heavily T2 weighted MRCP images of the biliary system. Rotating maximum intensity projection images of the biliary system were generated. FINDINGS: MRCP: The common bile duct is of a normal caliber. No evidence of choledocholithiasis. No intrahepatic biliary ductal dilatation. LIVER: Unremarkable. GALLBLADDER: Multiple square-shaped gallstones are seen measuring 13 mm in diameter. There is mild mural thickening of the gallbladder SPLEEN: Unremarkable. PANCREAS: Unremarkable. ADRENALS: Unremarkable. KIDNEYS: Unremarkable. AORTA: No aneurysm. ASCITES: None. OTHER FINDINGS: None. IMPRESSION: Multiple gallstones. Normal caliber common bile duct with no evidence of stones
--- NOTE | 2016-12-31 11:08 | PN ---
DATE: 12/31/2016 The patient is in bed, in no acute distress, nontoxic. No fevers and chills. She is doing better, l ess pain. PHYSICAL EXAMINATION: VITAL SIGNS: Temperature is 98 and blood pressure is 117/70, respiratory rate of 16. HEENT: Unremarkable. NECK: Supple. LUNGS: Have decreased breath sounds. HEART: Normal S1, S2. ABDOMEN: Soft, nontender. LABORATORY EXAMINATION: Reveals the patient has a white count of 13,100, hemoglobin of 13 and platel ets of 181, 35% lymphocytosis, 58% granulocytosis and patient's MCV is 13. BUN of 9, creatinine of 0 .7. Urinalysis is noted. Microbiology reveals E. coli in the urine, which is sensitive to ceftriaxo ne, resistant to Cipro and resistant to Bactrim. ALLERGIES: THE PATIENT IS ALLERGIC TO PENICILLIN. Review of orders reveals the patient's HIV is pending. The patient is on meropenem, tolerating. The patient's MRCP is pending, a HIDA scan is pending. Repeat urinalysis from yesterday is fairly unrem arkable. ASSESSMENT AND PLAN: A 61-year-old female with depression, anxiety, posttraumatic stress syndrome, o steoarthritis, hypothyroidism, high cholesterol. Admitted with sepsis and with leukocytosis, tachyca rdia, dyspnea and abdominal pain and distended gallbladder with Escherichia coli in the urine, sepsis secondary to acute cholecystitis versus Escherichia coli urinary tract infection/cystitis, although urinalysis is not very impressive and the patient is ALLERGIC TO PENICILLIN. We will continue the me ropenem. We will check on the MRCP. We will check on the HIDA scan and the final blood cultures, an d follow the white blood cells and will make further recommendations. Cristian Santos MD cc: [id number] TT: 12/31/2016 11:07:02 Confirmation # [id number] Dictation # [id number]
--- NOTE | 2017-01-01 02:51 | CON ---
DATE: 12/30/2016 REASON FOR CONSULTATION: Abdominal pain, gallstones, abnormal LFTs. HISTORY OF PRESENT ILLNESS: This is a 61-year-old patient with a past medical history of hypothyroidism, history of thyroid cancer in the past, status post __ ___. Admitted with of the breast, Presented to the Emergency Room with complaints of abdominal pain. Admitted with abdominal pain, nausea and vomiting. Acute onset. The pain was radiating to the back. In the ER, patient did have an ultrasound scan done, found to have gallstones, multiple large stones present. Also, has mildly thickened gallbladder wall noticed. Common bile duct was slightly prominent, measuring about 7.6. GI consult was requested to further evaluate. The patient never had a similar episode in the past. No fever. Other past medical history is significant as above, history of tonsillectomy, hypothyroidism, status post thyroidectomy for CA , tonsillectomy. ALLERGIES: ALLERGIC TO PENICILLIN. REVIEW OF SYSTEMS: Positive as above. Other systems reviewed and negative. PHYSICAL EXAMINATION: GENERAL: The patient is lying on the bed, not in acute distress. VITAL SIGNS: Temperature is 98.7, blood pressure 132/92, pulse 72, respirations 18. HEENT: Atraumatic, anicteric. NECK: Supple. HEART: S1, S2 heard. LUNGS: Bilateral normal vesicular breath sounds. ABDOMEN: The patient has pain mainly in the right side of the abdomen and also some epigastric pain. The patient, in the ER, had a CT scan done, which showed . The patient also had ultrasound done, which showed multiple gallstones just in the gallbladder. Gallbladder also found to be dilated. CBD also with prominence, 7.6. Other past medical history as above. ALLERGIES: ALLERGIC TO PENICILLIN. REVIEW OF SYSTEMS: Positive as above. Other systems reviewed and negative. PHYSICAL EXAMINATION: GENERAL: The patient is lying on the bed, not in acute distress. Other systems reviewed. PHYSICAL EXAMINATION: VITAL SIGNS: Temperature is 98.9, pulse 75, blood pressure 132/92, respirations 18. REVIEW OF SYSTEMS: Positive as above. Other systems reviewed. PHYSICAL EXAMINATION: GENERAL: The patient is lying on the bed, not in acute distress. VITAL SIGNS: Temperature is 98.9, pulse is 75, blood pressure 132/92. HEENT: Atraumatic, anicteric. NECK: Supple. HEART: S1, S2 heard. LUNGS: Bilateral air entry present. ABDOMEN: Soft. There is a mild tenderness present on the right side of the abdomen. EXTREMITIES: No edema. No cyanosis. NEUROLOGIC: Alert, oriented. Moves all the extremities. LABORATORY DATA: Hemoglobin 11.9, hematocrit 35.2, WBCs 13.9, platelets 185. LFTs are essentially unremarkable. Total bilirubin 1.9, direct bilirubin is normal. IMPRESSION: 1. This 61-year-old patient is admitted with acute onset of pain, mainly in the right side of the abdomen, and also upper quadrant area. No rebound. The differential diagnosis should include cholelithiasis, biliary colic, rule out cholecystitis. 2. Abnormal LFTs, mainly direct bilirubin is elevated. The rest of the labs are okay. The patient's ultrasound and sonogram also reviewed. IMPRESSION: 1. Biliary colic, rule out cholecystitis. 2. Differential diagnosis includes peptic ulcer disease, neoplasia, biliary ___ __ to be considered. Would recommend CT scan of the abdomen and pelvis with p.o. contrast only. IMPRESSION: . Would recommend followup of the LFTs and the bilirubin is mainly indirect bilirubin. Will get a direct bilirubin and also request for MRCP and HIDA scan , which is not done. Spoke with the nursing poultry farm supervisor regarding the HIDA scan , which was ordered yesterday. We will continue the antibiotics. Surgical team is also following with us. Continue antibiotics. The patient has been on now, started on meropenem as per ID. The patient has no tenderness on the left side of the abdomen, less likely it is related to the colitis. The symptoms are mainly in the suprapubic area on the right side of the abdomen radiating to the back. The patient, follow up of the LFTs. Requested for HIDA scan and also MRCP. We will follow that. We will start the patient on a clear liquid diet. Followup of the LFTs. Thank you very much for allowing us to participate in the care of the patient. Kamila Siu MD cc: [id number] TT: 12/31/2016 08:17:32 Confirmation # [id number] Dictation # [id number] en MTDD
[2017-01-01] MEDS: Meropenem 1g/NS 100mL IVPB 1 GM/100 ML PIGGYBACK IVPB SCH ×3 (05:02→21:36)
[2017-01-01] MEDS: HYDROmorphone 0.5 mg/0.5 ml ISec IVP PRN (05:15)
[2017-01-01 06:35] LABS: ADD MANUAL DIFF? NO
[2017-01-01 07:05] LABS: BASO # 0.03 K/mm3 (0.0-2.0); BASO % 0.3 % (0.0-3.0); EOS # 0.2 (0.0-0.7); EOS % 1.6 % (1.5-5.0); GRAN # 4.01 (1.4-6.5); GRAN % 43.9 % (50.0-68.0); HEMATOCRIT 34.6 % (36.0-48.0); LYMPH # 4.3 (1.2-3.4); LYMPH % 46.4 % (22.0-35.0); MEAN CELL VOLUME 99.7 fL (80.0-105.0); MEAN CORPUSCULAR HEMOGLOBIN 32.6 pg (25.0-35.0); MEAN CORPUSCULAR HGB CONC 32.7 g/dl (31.0-37.0); MEAN PLATELET VOLUME 10.5 fl (7.0-11.0); MONO # 0.7 (0.1-0.6); MONO % 7.8 % (1.0-6.0); PLATELET COUNT 176 10^3/uL (120.0-450.0); RED CELL DISTRIBUTION WIDTH 12.8 % (11.5-14.5); WHITE BLOOD COUNT 9.2 10^3/ul (4.5-11.0)
[2017-01-01 07:13] LABS: ALB/GLOB RATIO 1.5 (1.1-1.8); ALKALINE PHOSPHATASE 63 U/L (38-133); ALT/SGPT 25 U/L (7-56); AST/SGOT 22 U/L (15-39); BILIRUBIN,TOTAL 1.7 mg/dL (0.2-1.3); BLOOD UREA NITROGEN 10 mg/dL (7-21); CALCIUM 8.6 mg/dL (8.4-10.5); CARBON DIOXIDE 28 mmol/L (21-33); CHLORIDE 103 mmol/L (98-107); GFR AFRICAN-AMERICAN > 60; GLUCOSE,RANDOM 87 mg/dL (70-110); POTASSIUM 3.6 mmol/L (3.6-5.0); SODIUM 137 mmol/L (132-148)
--- NOTE | 2017-01-01 07:41 | PN ---
DATE: 12/31/2016 SUBJECTIVE: The patient seen and examined on the bedside. Friend was sitting on the bedside. Nurse was also on the bedside. The patient was just getting relief from pain. According to the patient, today she had big episode of severe pain. Was almost crying with pain; got pain medication that gave her relief. No nausea, vomiting, or diarrhea. No hematuria or hematochezia. No swelling of the le gs. No fever, no chills. PHYSICAL EXAMINATION: VITAL SIGNS: Temperature 98.5, pulse 85, blood pressure 133/75, respiratory rate 20. HEENT: Head is normocephalic, atraumatic. Eyes: PERRLA. Extraocular muscles intact. Conjunctivae are clear. Nose patent. Mucous membranes moist. NECK: Supple. No carotid bruit. No JVD or thyromegaly. CHEST: Bilaterally symmetrical. HEART: S1, S2 positive. LUNGS: Clear to auscultation. ABDOMEN: Soft. Tender as for deep palpation. No organomegaly. EXTREMITIES: No edema, no cyanosis. NEUROLOGIC: The patient is awake, alert, moving all 4 extremities. No focal deficit. MEDICATIONS: Dilaudid, meropenem, Protonix, Reglan, Synthroid. LABORATORY DATA: White blood cells 13.1, hemoglobin 13.1, hematocrit 38.3, platelets 181. Sodium 13 8, potassium 3.5, BUN 9, creatinine 0.7, glucose 111, bilirubin 2.1. ASSESSMENT AND PLAN: The patient is a 61-year-old lady with hypokalemia (replaced), hyperglycemia, a bnormal liver function test, leukocytosis, seen by infectious disease/Dr. Santos, history of depr ession, anxiety, posttraumatic stress syndrome, osteoarthritis, hypothyroidism, hypercholesterolemia , sepsis, tachycardia and dyspnea. Has cholecystitis versus Escherichia coli urinary tract infection /cystitis, although urinalysis is not very impressive and the patient is ALLERGIC TO PENICILLIN as pe r infectious disease. Continue meropenem. Waiting for HIDA scan. The patient went for MRCP. Accor ding to Dr. Kamron Huston, multiple gallstones, normal caliber common bile duct with no evidence of s tones. Reviewed Dr. Iglesias's (the surgeon) notes and Dr. Santos's notes. NPO after midnight as per Dr. Iglesias. Possibly OR in the morning. GI and DVT prophylaxis. Repeat labs. Will follow up . Lashell Higuera MD cc: [id number] TT: 01/01/2017 07:40:34 Confirmation # [id number] Dictation # [id number] mn
--- NOTE | 2017-01-01 08:37 | HP ---
CHIEF COMPLAINT: Intractable abdominal pain, nausea and vomiting. HISTORY OF PRESENT ILLNESS: The patient is a 61-year-old, my private patient, with no abdominal surgical history, history of hypercholesterolemia, came to the Emergency Room with right-sided abdominal pain since 2:00. She states that pain is constant and getting progressively worse. The patient states that she did not eat yesterday, she reports that she took Pepto Bismol and TUMS, Rolaids with no relief. The patient did work yesterday, today, but upon coming back home pain became very intractable, with nonbloody vomiting. She denies any urinary symptoms. No back pain, no fever, no chills. PAST MEDICAL HISTORY: Hypothyroidism, thyroidectomy, tonsillectomy. FAMILY HISTORY: Father and mother noncontributory. HABITS: Never smoked. Alcohol socially, drugs never. ALLERGIES: THE PATIENT HAS ALLERGY PENICILLIN. HOME MEDICATIONS: Levothyroxine. REVIEW OF SYSTEMS: The patient was seen and examined in the Emergency Room and son is on the bedside, having intractable abdominal pain, nauseous and vomiting. No chest pain, no shortness of breath, no hearing changes, no vision changes, no dysuria or hematuria, complaining about back pain. No rash. No headache, no dizziness, no diaphoresis. PHYSICAL EXAMINATION: VITAL SIGNS: Temperature 97.4, pulse 74, respiratory 15, blood pressure 147/85. HEENT: Head normocephalic, atraumatic. Eyes: PERRLA. Extraocular muscles intact. Conjunctivae clear. Nose patent. Mucous membranes moist. NECK: Supple. No carotid bruit, JVD or thyromegaly. CHEST: Bilaterally symmetrical. HEART: S1, S2 positive. LUNGS: Clear to auscultation. ABDOMEN: Soft. Bowel sounds present. No organomegaly. Abdomen is tender especially in the right side. EXTREMITIES: No edema, no cyanosis. NEUROLOGIC: The patient is awake, alert and moving all 4 extremities. No focal deficits. Oriented x 3. LABORATORY DATA: White blood cells 14.2, hemoglobin 13.4, hematocrit 37.9, platelets 212. Sodium 13, potassium 3.4, BUN 12, creatinine 0.7, glucose 144. ASSESSMENT AND PLAN: The patient is a [id number]-female who came in with intractable abdominal pain with nausea and vomiting, history of hypothyroidism. Did CAT scan of the abdomen and pelvis shows distended gallbladder, no calcified gallstones evident, correlation clinically for possibility of acute pancreatitis, 3.9 cm right mid lobe and 3.8 cm left upper lobe low density lesions, appear cystic, nonobstructive cough , right upper pole calculus. The patient has ultrasound done. minimal gallbladder with wall thickening and gallbladder dilatation. No evidence of pericholecystic fluid or a positive sonograph Avalos's sign. Wall thickening could be due to the chronic cholecystitis; however, early acute cholecystitis not excluded entirely. I recommend clinical correlation as per radiologist, nonobstructing right renal stone, bilateral renal cyst; seen by the surgical team, Dr. Geno Augustine. The patient has leukocytosis, hypokalemia, hyperglycemia. According to surgical team the patient needs analgesic, antiemetic, IV fluid, antibiotics. I appreciate Dr. Iglesias's team's input. Discussion done with the and son and Dr. PRADO physician. We will follow up. Lashell Higuera MD cc: [id number] TT: 12/29/2016 22:47:45 jn MTDD
[2017-01-01] MEDS: Levothyroxine 100 MCG TAB PO SCH (09:19)
[2017-01-01] MEDS ORDERED: Iohexol 240 (50 ml) ONE (14:40)
[2017-01-01] MEDS ORDERED: Bupivacaine 0.5% Inj(30mL) ONE (14:40)
[2017-01-01] MEDS ORDERED: Propofol 10 mg/ml Inj (20 ML) ONE (15:10)
[2017-01-01] MEDS ORDERED: Midazolam 2 MG/2 ML VIAL ONE (15:10)
[2017-01-01] MEDS ORDERED: Succinylcholine 200 mg/10 ml Inj IV ONE (15:11)
[2017-01-01] MEDS ORDERED: Rocuronium 10 mg/ml (5 ml) ONE (15:11)
--- NOTE | 2017-01-01 15:22 | PN ---
DATE: 01/01/2017 The patient is in bed, was seen earlier in 260, bed 1. She states her pain is much improved. She banks s no fever, no nausea or vomiting. PHYSICAL EXAMINATION: VITAL SIGNS: Temperature is 98, blood pressure is 104/60, respiratory rate of 20, heart rate of 80. HEENT: Unremarkable. NECK: Supple. LUNGS: Have decreased breath sounds. HEART: Normal S1, S2. ABDOMEN: Soft. LABORATORY EXAMINATION: Reveals the white count this morning is down from 14,000 to 9000, hemoglobin of 11 and platelets of 176. BUN of 10, creatinine of 0.7. LFTs are normal and alk phos is normal. Urinalysis is noted to have 0-2 WBCs and there is ketones and negative protein, negative leukocyte e sterase. Microbiology reveals the blood cultures have no growth. The urine culture initially had E. coli, sensitive to ceftriaxone, resistant to Cipro and resistant to Bactrim. Review of the medications reveals the patient is on meropenem. The patient's HIDA scan is pending. Dr. Higuera's note from yesterday is noted. The patient had MRCP and multiple stones are seen on the MRCP, normal caliber common bile duct with no evidence of stone. Dr. Iglesias's note is reviewed. ASSESSMENT AND PLAN: A 61-year-old female with depression, anxiety, posttraumatic stress syndrome, o steoarthritis, hypothyroidism, high cholesterol, sepsis with abdominal pain and distended gallbladder , Escherichia coli in the urine, sepsis secondary to acute cholecystitis with Escherichia coli urinar y tract infection and cystitis, who is ALLERGIC TO PENICILLIN. Currently on meropenem day #3. Will follow with you. Cristian Santos MD cc: [id number] TT: 01/01/2017 15:21:15 Confirmation # [id number] Dictation # [id number] en
[2017-01-01] MEDS ORDERED: Phenylephrine 10 mg/ml Inj ONE (15:45)
--- NOTE | 2017-01-01 16:13 | PN ---
DATE: 01/01/2017 Seen and examined at the bedside earlier today, n.p.o. awaiting to go for cholecystectomy. No acute overnight events reported and no new complaints. Abdominal pain slightly better. VITAL SIGNS: Temperature is 98.6, blood pressure 104/65, pulse 63, respirations 20. LABORATORY DATA: WBC is 9.2, H and H is 11.3 and 34.6, platelets are 176. Sodium 137, K is 3.6, BUN is 10, creatinine 0.7. Total bilirubin is 1.7. AST 22, ALT 25, alk phos is 63. PHYSICAL EXAMINATION: HEENT: Sclera is anicteric. NECK: Supple. CARDIAC: S1, S2. LUNGS: Sounds with decreased breath sounds at the bases but good air entry. No rales or wheeze. ABDOMEN: Positive bowel sounds, soft, not distended, no tenderness on palpation. EXTREMITIES: No edema. NEUROLOGIC: Awake, alert, oriented. ASSESSMENT: This is a 61-year-old female who came with acute onset of abdominal pain, mainly in the right upper quadrant. She had ____. The patient likely with biliary colic with leukocytosis, acute cholecystitis, urinary tract infection. She did have MRCP and that showed multiple gallstones. The common bile duct was okay. PLAN: She is going to have a cholecystectomy today, so she is n.p.o. She is on IV antibiotics of me ropenem, PPI and gets Dilaudid for pain as per surgery and ID. The patient was seen and case discussed with Dr. Siu. Tala JARRETT cc: [id number] TT: 01/01/2017 16:13:06 Confirmation # [id number] Dictation # [id number]
[2017-01-01] MEDS ORDERED: Neostigmine Methylsulfate 3mg/3ml Syringe IV ONE (17:39)
--- NOTE | 2017-01-01 17:42 | PCM.SURG1 ---
Surgeon's Initial Post Op Note - Surgeon's Notes Surgeon: Harris Last Ironer: PGY3, Saima PGY1 Type of Anesthesia: General Endo Pre-Operative Diagnosis: Acute cholecystitis Operative Findings: Acute cholecystitis, stones, adhesions Post-Operative Diagnosis: Acute cholecystitis Operation Performed: Laparoscopic cholecystectomy, intraoperative cholangiogram Specimen/Specimens Removed: gallbladder Estimated Blood Loss: EBL {In ML}: 50 Blood Products Given: N/A Drains Used: No Drains Post-Op Condition: Good Date of Surgery/Procedure: 01/01/17 Time of Surgery/Procedure: 15:15
[2017-01-01] MEDS ORDERED: Sodium Chloride 0.9% 1,000 ML IV SCH (17:45)
[2017-01-01] MEDS ORDERED: HYDROmorphone 0.5 mg/0.5 ml ISec IVP PRN (17:45)
[2017-01-01] MEDS ORDERED: HYDROmorphone 0.5 mg/0.5 ml ISec ONE (18:20)
[2017-01-01] MEDS: Lactated Ringer's 1,000 ML IV SCH (18:59)
[2017-01-01] MEDS: HYDROmorphone 1 mg/ml ISec IVP PRN (22:09)
--- NOTE | 2017-01-02 00:16 | PN ---
DATE: 12/31/2016 This is a delayed dictation. SUBJECTIVE: The patient was seen earlier, feels much better , tolerating the diet, has only minimal discomfort in the right upper quadrant. PHYSICAL EXAMINATION: VITAL SIGNS: Temperature is afebrile. Blood pressure is 133/75, pulse 74, respirations 20, O2 saturation . HEENT: Atraumatic, anicteric. NECK: Supple. HEART: S1, S2 heard. LUNGS: Bilateral air entry present. ABDOMEN: Soft. There was mild tenderness on deep palpation in the right upper quadrant area. No rebound or guarding. EXTREMITIES: No edema. No cyanosis. LABORATORY DATA: WBC count 13.1, hemoglobin 13.1, hematocrit 38.3, platelets 181. LFTs remain normal, except his total bilirubin is 2.1, but, direct bilirubin has been normal. Rule out . IMPRESSION: This is a 61-year-old patient admitted with abdominal pain, found to have gallstones. Common bile duct normal. MRCP showed negative for any gallstones. Direct bilirubin is normal PLAN: The patient is scheduled for OR by the surgical team. Will continue to follow up the LFTs. Thank you very much for allowing us to participate in the care of the patient. Kamila Siu MD cc: [phone] TT: 01/02/2017 00:15:34 Confirmation # [id number] Dictation # [id number] mn TARAS
--- NOTE | 2017-01-02 00:19 | PN ---
DATE: 01/01/2017 ADDENDUM: This is an addendum to the gastrointestinal progress report dictated by Tala Cotton APN. This is a delayed dictation. SUBJECTIVE: The patient was evaluated presurgery. At the time of examination, the patient was . No specific complaints otherwise. PHYSICAL EXAMINATION: Abdomen soft. LABORATORY DATA: The LFTs have come down to 1.7. The total bilirubin . Direct bilirubin was normal. PLAN: The patient is scheduled to have an cholecystectomy. I discussed with Dr. Iglesias. Plan to have an intraoperative cholangiogram at the time of surgery. Thank you very much for allowing us to participate in the care of the patient. Kamila Siu MD cc: [id number] TT: 01/02/2017 00:18:14 Confirmation # [id number] Dictation # [id number] maryam GRAJEDA
[2017-01-02] MEDS: HYDROmorphone 1 mg/ml ISec IVP PRN ×2 (04:12→09:18)
[2017-01-02] MEDS: Lactated Ringer's 1,000 ML IV SCH ×2 (05:05→13:22)
[2017-01-02] MEDS: Levothyroxine 100 MCG TAB PO SCH (05:10)
[2017-01-02 05:40] LABS: ADD MANUAL DIFF? NO
[2017-01-02 05:47] LABS: BASO # 0.02 K/mm3 (0.0-2.0); BASO % 0.2 % (0.0-3.0); EOS # 0.1 (0.0-0.7); EOS % 1.4 % (1.5-5.0); GRAN # 3.65 (1.4-6.5); GRAN % 44.1 % (50.0-68.0); HEMATOCRIT 32.4 % (36.0-48.0); LYMPH # 3.9 (1.2-3.4); LYMPH % 46.8 % (22.0-35.0); MEAN CELL VOLUME 99.1 fL (80.0-105.0); MEAN CORPUSCULAR HEMOGLOBIN 33.3 pg (25.0-35.0); MEAN CORPUSCULAR HGB CONC 33.6 g/dl (31.0-37.0); MEAN PLATELET VOLUME 9.8 fl (7.0-11.0); MONO # 0.6 (0.1-0.6); MONO % 7.5 % (1.0-6.0); PLATELET COUNT 183 10^3/uL (120.0-450.0); RED CELL DISTRIBUTION WIDTH 12.6 % (11.5-14.5); WHITE BLOOD COUNT 8.3 10^3/ul (4.5-11.0)
[2017-01-02 05:57] LABS: ALB/GLOB RATIO 1.6 (1.1-1.8); ALKALINE PHOSPHATASE 65 U/L (38-133); ALT/SGPT 42 U/L (7-56); AST/SGOT 50 U/L (15-39); BLOOD UREA NITROGEN 8 mg/dL (7-21); CALCIUM 8.3 mg/dL (8.4-10.5); CARBON DIOXIDE 28 mmol/L (21-33); CHLORIDE 103 mmol/L (95-110); GFR AFRICAN-AMERICAN > 60; GLUCOSE,RANDOM 91 mg/dL (70-110); POTASSIUM 4.2 mmol/L (3.6-5.0); SODIUM 137 mmol/L (132-148); TOTAL PROTEIN 5.7 g/dL (5.8-8.3)
[2017-01-02] MEDS: Meropenem 1g/NS 100mL IVPB 1 GM/100 ML PIGGYBACK IVPB SCH ×3 (07:23→21:50)
[2017-01-02] MEDS: Enoxaparin 40 mg Syringe SC SCH (09:18)
--- NOTE | 2017-01-02 10:22 | CP.PCM.PN ---
Subjective - Date & Time of Evaluation Date of Evaluation: 01/02/17 Time of Evaluation: 07:05 - Subjective Subjective: General Surgery PtS&E, NAEO. Has some pain at incisions. Throat is sore. Tolerating diet, ambulating, using IS. No flatus/BM. Objective - Vital Signs/Intake and Output Vital Signs (last 24 hours): Temp Pulse Resp BP Pulse Ox 97.8 F 80 18 122/71 95 01/02/17 08:00 01/02/17 08:00 01/02/17 08:00 01/02/17 08:00 01/02/17 08:00 Intake and Output: 01/02/17 01/02/17 06:59 18:59 Intake Total 780 Output Total 1 Balance 779 - Medications Medications: Current Medications Benzocaine/Menthol (Cepacol Sore Throat) 1 johnny MT Q2H PRN PRN Reason: Sore Throat Enoxaparin Sodium (Lovenox) 40 mg SC DAILY [facility] PRN Reason: Protocol Last Admin: 01/02/17 09:18 Dose: 40 mg Hydromorphone HCl (Dilaudid) 0.5 mg IVP Q4H PRN PRN Reason: Pain, Mild (1-3) Last Admin: 01/01/17 05:15 Dose: 0.5 mg Hydromorphone HCl (Dilaudid) 1 mg IVP Q4H PRN PRN Reason: Pain, moderate (4-7) Last Admin: 01/02/17 09:18 Dose: 1 mg Meropenem 1g/NS 100mL IVPB (Meropenem 1g/Ns 100ml Ivpb) 1 gm in 100 mls @ 100 mls/hr IVPB Q8 [facility] PRN Reason: Protocol Stop: 01/09/17 13:09 Last Admin: 01/02/17 07:23 Dose: 100 mls/hr Lactated Ringer's (Lactated Ringer's) 1,000 mls @ 100 mls/hr IV .Q10H [facility] Last Admin: 01/02/17 05:05 Dose: 100 mls/hr Levothyroxine Sodium (Synthroid) 100 mcg PO 0600 [facility] Last Admin: 01/02/17 05:10 Dose: 100 mcg Metoclopramide HCl (Reglan) 10 mg IVP Q6 PRN PRN Reason: Nausea/Vomiting Ondansetron HCl (Zofran Inj) 4 mg IVP Q4H PRN PRN Reason: Nausea/Vomiting Pantoprazole Sodium (Protonix Inj) 40 mg IVP DAILY [facility] Last Admin: 01/02/17 09:19 Dose: 40 mg - Labs Labs: 01/02/17 05:30 01/02/17 05:30 PT 12.5 Seconds (9.9-11.8) H 12/29/16 18:00 INR 1.16 (0.93-1.08) H 12/29/16 18:00 APTT 28.0 Seconds (23.7-30.8) 12/29/16 18:00 - Constitutional Appears: Non-toxic, No Acute Distress - Head Exam Head Exam: ATRAUMATIC, NORMOCEPHALIC - Eye Exam Eye Exam: EOMI. absent: Scleral icterus - Respiratory Exam Respiratory Exam: NORMAL BREATHING PATTERN. absent: Respiratory Distress - GI/Abdominal Exam GI & Abdominal Exam: Soft, Tenderness (at incision sites). absent: Distended, Firm, Rigid Additional comments: Incisions C/D/I - Neurological Exam Neurological Exam: Alert, Awake, Oriented x3 - Skin Skin Exam: Dry, Warm Assessment and Plan - Assessment and Plan (Free Text) Assessment: 61F S/P lap ayanna with IOC, POD#1 Plan: Advanced diet Encouraged ambulation and IS use. Ok for DC from a surgical standpoint Follow up with Dr. Iglesias in 1-2 weeks D/W Dr. Harris Arreguin PGY3
[2017-01-02] MEDS: Benzocaine/Menthol (Cepacol) Lozenge MT PRN (13:22)
--- NOTE | 2017-01-02 15:04 | CP.PCM.PN ---
Subjective - Date & Time of Evaluation Date of Evaluation: 01/02/17 Time of Evaluation: 09:10 - Subjective Subjective: S&E earlier today. s/p lap cholecystectomy POD#1 with IOC. eating breakfast, tolerating, has post op pain but no distress. No flatus or BM yet. No fever or chills. Objective - Vital Signs/Intake and Output Vital Signs (last 24 hours): Temp Pulse Resp BP Pulse Ox 98 F 73 20 103/70 95 01/02/17 12:36 01/02/17 12:36 01/02/17 12:36 01/02/17 12:36 01/02/17 08:00 Intake and Output: 01/02/17 01/02/17 06:59 18:59 Intake Total 780 Output Total 1 Balance 779 - Medications Medications: Current Medications Benzocaine/Menthol (Cepacol Sore Throat) 1 johnny MT Q2H PRN PRN Reason: Sore Throat Last Admin: 01/02/17 13:22 Dose: 1 johnny Enoxaparin Sodium (Lovenox) 40 mg SC DAILY [facility] PRN Reason: Protocol Last Admin: 01/02/17 09:18 Dose: 40 mg Hydromorphone HCl (Dilaudid) 0.5 mg IVP Q4H PRN PRN Reason: Pain, Mild (1-3) Last Admin: 01/01/17 05:15 Dose: 0.5 mg Hydromorphone HCl (Dilaudid) 1 mg IVP Q4H PRN PRN Reason: Pain, moderate (4-7) Last Admin: 01/02/17 09:18 Dose: 1 mg Meropenem 1g/NS 100mL IVPB (Meropenem 1g/Ns 100ml Ivpb) 1 gm in 100 mls @ 100 mls/hr IVPB Q8 [facility] PRN Reason: Protocol Stop: 01/09/17 13:09 Last Admin: 01/02/17 13:22 Dose: 100 mls/hr Lactated Ringer's (Lactated Ringer's) 1,000 mls @ 100 mls/hr IV .Q10H [facility] Last Admin: 01/02/17 13:22 Dose: 100 mls/hr Levothyroxine Sodium (Synthroid) 100 mcg PO 0600 [facility] Last Admin: 01/02/17 05:10 Dose: 100 mcg Metoclopramide HCl (Reglan) 10 mg IVP Q6 PRN PRN Reason: Nausea/Vomiting Ondansetron HCl (Zofran Inj) 4 mg IVP Q4H PRN PRN Reason: Nausea/Vomiting Pantoprazole Sodium (Protonix Inj) 40 mg IVP DAILY [facility] Last Admin: 01/02/17 09:19 Dose: 40 mg - Labs Labs: 01/02/17 05:30 01/02/17 05:30 PT 12.5 Seconds (9.9-11.8) H 12/29/16 18:00 INR 1.16 (0.93-1.08) H 12/29/16 18:00 APTT 28.0 Seconds (23.7-30.8) 12/29/16 18:00 - Constitutional Appears: No Acute Distress - Head Exam Head Exam: NORMAL INSPECTION - Eye Exam Eye Exam: Normal appearance. absent: Scleral icterus - ENT Exam ENT Exam: Mucous Membranes Moist - Neck Exam Neck Exam: Normal Inspection - Respiratory Exam Respiratory Exam: Clear to Ausculation Bilateral, NORMAL BREATHING PATTERN. absent: Respiratory Distress - Cardiovascular Exam Cardiovascular Exam: +S1, +S2 - GI/Abdominal Exam GI & Abdominal Exam: Soft, Tenderness (right sided, some at incisional sites, but sites D&I), Normal Bowel Sounds. absent: Guarding, Rebound - Extremities Exam Extremities Exam: absent: Calf Tenderness, Pedal Edema - Neurological Exam Neurological Exam: Alert, Awake, Oriented x3 Assessment and Plan - Assessment and Plan (Free Text) Assessment: ASSESSMENT: Acute cholecytitis s/p Lap Cholecsytectomy w/ IOC UTI Elevated LFT, improving PLAN: IV antibiotics continue PPI Low fat diet as per surgery monitor LFT, improving, TB normalized Seen and discussed with Dr. Siu
--- NOTE | 2017-01-02 20:30 | CP.PCM.PN ---
Subjective - Date & Time of Evaluation Date of Evaluation: 01/02/17 Time of Evaluation: 08:00 - Subjective Subjective: DOING BETTER Objective - Vital Signs/Intake and Output Vital Signs (last 24 hours): Temp Pulse Resp BP Pulse Ox 97.3 F L 73 18 109/69 91 L 01/02/17 16:15 01/02/17 12:36 01/02/17 16:15 01/02/17 16:15 01/02/17 16:15 Intake and Output: 01/02/17 01/03/17 18:59 06:59 Intake Total 660 Balance 660 - Medications Medications: Current Medications Benzocaine/Menthol (Cepacol Sore Throat) 1 johnny MT Q2H PRN PRN Reason: Sore Throat Last Admin: 01/02/17 13:22 Dose: 1 johnny Enoxaparin Sodium (Lovenox) 40 mg SC DAILY [facility] PRN Reason: Protocol Last Admin: 01/02/17 09:18 Dose: 40 mg Hydromorphone HCl (Dilaudid) 0.5 mg IVP Q4H PRN PRN Reason: Pain, Mild (1-3) Last Admin: 01/01/17 05:15 Dose: 0.5 mg Hydromorphone HCl (Dilaudid) 1 mg IVP Q4H PRN PRN Reason: Pain, moderate (4-7) Last Admin: 01/02/17 09:18 Dose: 1 mg Meropenem 1g/NS 100mL IVPB (Meropenem 1g/Ns 100ml Ivpb) 1 gm in 100 mls @ 100 mls/hr IVPB Q8 [facility] PRN Reason: Protocol Stop: 01/09/17 13:09 Last Admin: 01/02/17 13:22 Dose: 100 mls/hr Levothyroxine Sodium (Synthroid) 100 mcg PO 0600 [facility] Last Admin: 01/02/17 05:10 Dose: 100 mcg Metoclopramide HCl (Reglan) 10 mg IVP Q6 PRN PRN Reason: Nausea/Vomiting Ondansetron HCl (Zofran Inj) 4 mg IVP Q4H PRN PRN Reason: Nausea/Vomiting Pantoprazole Sodium (Protonix Inj) 40 mg IVP DAILY [facility] Last Admin: 01/02/17 09:19 Dose: 40 mg - Labs Labs: 01/02/17 05:30 01/02/17 05:30 PT 12.5 Seconds (9.9-11.8) H 12/29/16 18:00 INR 1.16 (0.93-1.08) H 12/29/16 18:00 APTT 28.0 Seconds (23.7-30.8) 12/29/16 18:00 - Constitutional Appears: Well - Head Exam Head Exam: ATRAUMATIC, NORMAL INSPECTION, NORMOCEPHALIC - Eye Exam Eye Exam: EOMI, Normal appearance, PERRL Pupil Exam: NORMAL ACCOMODATION, PERRL - ENT Exam ENT Exam: Mucous Membranes Moist, Normal Exam - Neck Exam Neck Exam: Full ROM, Normal Inspection. absent: Lymphadenopathy - Respiratory Exam Respiratory Exam: Clear to Ausculation Bilateral, NORMAL BREATHING PATTERN - Cardiovascular Exam Cardiovascular Exam: REGULAR RHYTHM, +S1, +S2. absent: Murmur - GI/Abdominal Exam GI & Abdominal Exam: Soft, Normal Bowel Sounds. absent: Tenderness - Rectal Exam Rectal Exam: NORMAL INSPECTION - Exam Exam: Circumcision, NORMAL INSPECTION External exam: NORMAL EXTERNAL EXAM Speculum exam: NORMAL SPECULUM EXAM Bimanual exam: NORMAL BIMANUAL EXAM - Extremities Exam Extremities Exam: Full ROM, Normal Capillary Refill, Normal Inspection. absent : Joint Swelling, Pedal Edema - Back Exam Back Exam: NORMAL INSPECTION - Neurological Exam Neurological Exam: Alert, Awake, CN II-XII Intact, Normal Gait, Oriented x3 - Psychiatric Exam Psychiatric exam: Normal Affect, Normal Mood - Skin Skin Exam: Dry, Intact, Normal Color, Warm Assessment and Plan (1) Sepsis Status: Acute - Assessment and Plan (Free Text) Assessment: SEPSIS Plan: PRESENT [place] CHECK PATH
[2017-01-03] MEDS: HYDROmorphone 1 mg/ml ISec IVP PRN ×2 (00:14→07:52)
[2017-01-03] MEDS: Meropenem 1g/NS 100mL IVPB 1 GM/100 ML PIGGYBACK IVPB SCH ×3 (05:27→21:58)
[2017-01-03] MEDS: Benzocaine/Menthol (Cepacol) Lozenge MT PRN ×2 (05:34→14:55)
[2017-01-03 07:15] LABS: HEMATOCRIT 30.4 % (36.0-48.0); MEAN CELL VOLUME 99.3 fL (80.0-105.0); MEAN CORPUSCULAR HGB CONC 33.2 g/dl (31.0-37.0); MEAN PLATELET VOLUME 9.7 fl (7.0-11.0); RED CELL DISTRIBUTION WIDTH 12.6 % (11.5-14.5)
[2017-01-03 07:25] LABS: BLOOD UREA NITROGEN 7 mg/dL (7-21); CALCIUM 8.4 mg/dL (8.4-10.5); CARBON DIOXIDE 34 mmol/L (21-33); CHLORIDE 101 mmol/L (98-107); GFR AFRICAN-AMERICAN > 60; GLUCOSE,RANDOM 91 mg/dL (70-110); POTASSIUM 3.9 mmol/L (3.6-5.0); SODIUM 138 mmol/L (132-148)
[2017-01-03] MEDS: Levothyroxine 100 MCG TAB PO SCH (08:46)
[2017-01-03 09:02] VITALS: O2SAT 97
[2017-01-03] MEDS: Enoxaparin 40 mg Syringe SC SCH (10:30)
[2017-01-03] MEDS: POLYETHYLENE GLYCOL 3350 17 GM/Dose PACKET PO SCH ×2 (10:32→17:19)
--- NOTE | 2017-01-03 11:05 | CP.PCM.PN ---
Subjective - Date & Time of Evaluation Date of Evaluation: 01/03/17 Time of Evaluation: 08:30 - Subjective Subjective: S&E earlier today. Still has occasional post op pain, no distress, no flatus or BM yet, tolerating oral intake, no N/V. Ambulating and IS prn. No acute overnight events. Objective - Vital Signs/Intake and Output Vital Signs (last 24 hours): Temp Pulse Resp BP Pulse Ox 98.4 F 66 16 119/79 97 01/03/17 09:01 01/03/17 09:01 01/03/17 09:01 01/03/17 09:01 01/03/17 09:01 Intake and Output: 01/03/17 01/03/17 06:59 18:59 Intake Total 1140 Balance 1140 - Medications Medications: Current Medications Benzocaine/Menthol (Cepacol Sore Throat) 1 johnny MT Q2H PRN PRN Reason: Sore Throat Last Admin: 01/03/17 05:34 Dose: 1 johnny Enoxaparin Sodium (Lovenox) 40 mg SC DAILY [facility] PRN Reason: Protocol Last Admin: 01/03/17 10:30 Dose: 40 mg Meropenem 1g/NS 100mL IVPB (Meropenem 1g/Ns 100ml Ivpb) 1 gm in 100 mls @ 100 mls/hr IVPB Q8 [facility] PRN Reason: Protocol Stop: 01/09/17 13:09 Last Admin: 01/03/17 05:27 Dose: 100 mls/hr Levothyroxine Sodium (Synthroid) 100 mcg PO 0600 [facility] Last Admin: 01/03/17 08:46 Dose: 100 mcg Metoclopramide HCl (Reglan) 10 mg IVP Q6 PRN PRN Reason: Nausea/Vomiting Ondansetron HCl (Zofran Inj) 4 mg IVP Q4H PRN PRN Reason: Nausea/Vomiting Oxycodone/Acetaminophen (Percocet 5/325 Mg Tab) 1 tab PO Q4H PRN PRN Reason: Pain, severe (8-10) Stop: 01/06/17 09:14 Pantoprazole Sodium (Protonix Inj) 40 mg IVP DAILY [facility] Last Admin: 01/03/17 10:27 Dose: 40 mg Polyethylene Glycol (Miralax) 17 gm PO BID [facility] Last Admin: 01/03/17 10:32 Dose: 17 gm - Labs Labs: 01/03/17 06:50 01/03/17 06:50 PT 12.5 Seconds (9.9-11.8) H 12/29/16 18:00 INR 1.16 (0.93-1.08) H 12/29/16 18:00 APTT 28.0 Seconds (23.7-30.8) 12/29/16 18:00 - Constitutional Appears: No Acute Distress - Head Exam Head Exam: NORMOCEPHALIC - Eye Exam Eye Exam: Normal appearance. absent: Scleral icterus - ENT Exam ENT Exam: Mucous Membranes Moist - Neck Exam Neck Exam: Normal Inspection - Respiratory Exam Respiratory Exam: Clear to Ausculation Bilateral, NORMAL BREATHING PATTERN. absent: Respiratory Distress - Cardiovascular Exam Cardiovascular Exam: +S1, +S2 - GI/Abdominal Exam GI & Abdominal Exam: Soft, Tenderness (mid abdomen, no rebound guarding), Normal Bowel Sounds. absent: Guarding, Rebound - Extremities Exam Extremities Exam: absent: Calf Tenderness, Pedal Edema - Neurological Exam Neurological Exam: Alert, Awake, Oriented x3 Assessment and Plan - Assessment and Plan (Free Text) Assessment: ASSESSMENT: Acute cholecytitis s/p Lap Cholecsytectomy w/ IOC UTI Elevated LFT, improving PLAN: IV antibiotics continue PPI Low fat diet monitor LFT, improving, TB normalized now on Miralax BID as per surgery encourage ambulation/IS Seen and discussed with Dr. Siu
--- NOTE | 2017-01-03 11:06 | CP.PCM.PN ---
Subjective - Date & Time of Evaluation Date of Evaluation: 01/03/17 Time of Evaluation: 07:50 - Subjective Subjective: Isidro Fregoso D.O. PGY-1, General Surgery Progress Note, Dr. Harris Blandon. 61 year old female with acute cholecystitis, s/p lap ayanna with IOC POD#2. Patient was seen and examined at bedside with surgical team. Patient states that she has been feeling better, has been walking around as instructed and using her IS. At this time patient denies any complaints including any N/V/D/C/ fevers/chills. No overnight events. Objective - Vital Signs/Intake and Output Vital Signs (last 24 hours): Temp Pulse Resp BP Pulse Ox 98.4 F 66 16 119/79 97 01/03/17 09:01 01/03/17 09:01 01/03/17 09:01 01/03/17 09:01 01/03/17 09:01 Intake and Output: 01/03/17 01/03/17 06:59 18:59 Intake Total 1140 Balance 1140 - Medications Medications: Current Medications Benzocaine/Menthol (Cepacol Sore Throat) 1 johnny MT Q2H PRN PRN Reason: Sore Throat Last Admin: 01/03/17 05:34 Dose: 1 johnny Enoxaparin Sodium (Lovenox) 40 mg SC DAILY [facility] PRN Reason: Protocol Last Admin: 01/03/17 10:30 Dose: 40 mg Meropenem 1g/NS 100mL IVPB (Meropenem 1g/Ns 100ml Ivpb) 1 gm in 100 mls @ 100 mls/hr IVPB Q8 [facility] PRN Reason: Protocol Stop: 01/09/17 13:09 Last Admin: 01/03/17 05:27 Dose: 100 mls/hr Levothyroxine Sodium (Synthroid) 100 mcg PO 0600 [facility] Last Admin: 01/03/17 08:46 Dose: 100 mcg Metoclopramide HCl (Reglan) 10 mg IVP Q6 PRN PRN Reason: Nausea/Vomiting Ondansetron HCl (Zofran Inj) 4 mg IVP Q4H PRN PRN Reason: Nausea/Vomiting Oxycodone/Acetaminophen (Percocet 5/325 Mg Tab) 1 tab PO Q4H PRN PRN Reason: Pain, severe (8-10) Stop: 01/06/17 09:14 Pantoprazole Sodium (Protonix Inj) 40 mg IVP DAILY [facility] Last Admin: 01/03/17 10:27 Dose: 40 mg Polyethylene Glycol (Miralax) 17 gm PO BID [facility] Last Admin: 01/03/17 10:32 Dose: 17 gm - Labs Labs: 01/03/17 06:50 01/03/17 06:50 PT 12.5 Seconds (9.9-11.8) H 12/29/16 18:00 INR 1.16 (0.93-1.08) H 12/29/16 18:00 APTT 28.0 Seconds (23.7-30.8) 12/29/16 18:00 - Constitutional Appears: Well, Non-toxic, No Acute Distress - Head Exam Head Exam: ATRAUMATIC, NORMOCEPHALIC - Eye Exam Eye Exam: EOMI, Normal appearance - ENT Exam ENT Exam: Mucous Membranes Moist - Respiratory Exam Respiratory Exam: absent: Accessory Muscle Use, Respiratory Distress - Cardiovascular Exam Cardiovascular Exam: RRR - GI/Abdominal Exam GI & Abdominal Exam: Soft, Tenderness (mild diffusely), Normal Bowel Sounds. absent: Distended Additional comments: well healing post op incisions - Extremities Exam Extremities Exam: absent: Calf Tenderness - Neurological Exam Neurological Exam: Alert, Awake, Oriented x3 - Skin Skin Exam: Dry, Warm Assessment and Plan - Assessment and Plan (Free Text) Assessment: 61 year old female with acute cholecystitis, s/p lap ayanna with IOC POD#2. Plan: Continues to improve, tolerating diet, passing gas Cont encourage ambulation and IS Ok to D/C, will need to follow up with Dr. Iglesias in 1-2 weeks Will discuss with attending physician. Thank you for the pleasure of participating in the care of this patient.
--- NOTE | 2017-01-03 15:57 | RAD ---
PROCEDURE: Operative cholangiogram HISTORY: ? CBD OBST COMPARISON: TECHNIQUE: Fluoroscopy was provided in the operating room. 38 seconds of fluoroscopy time were use. Three images were submitted FINDINGS: Filling defects are seen in the mid common duct. It is possible that these represent air bubbles. Stones cannot be excluded. Contrast flows into the duodenum without obstruction. IMPRESSION: As above
--- NOTE | 2017-01-03 21:33 | CP.PCM.PN ---
Subjective - Date & Time of Evaluation Date of Evaluation: 01/03/17 Time of Evaluation: 08:00 - Subjective Subjective: DOING BETTER Objective - Vital Signs/Intake and Output Vital Signs (last 24 hours): Temp Pulse Resp BP Pulse Ox 98 F 82 20 118/74 97 01/03/17 16:00 01/03/17 16:00 01/03/17 16:00 01/03/17 16:00 01/03/17 16:00 Intake and Output: 01/03/17 01/04/17 18:59 06:59 Intake Total 720 Balance 720 - Medications Medications: Current Medications Benzocaine/Menthol (Cepacol Sore Throat) 1 johnny MT Q2H PRN PRN Reason: Sore Throat Last Admin: 01/03/17 14:55 Dose: 1 johnny Enoxaparin Sodium (Lovenox) 40 mg SC DAILY [facility] PRN Reason: Protocol Last Admin: 01/03/17 10:30 Dose: 40 mg Meropenem 1g/NS 100mL IVPB (Meropenem 1g/Ns 100ml Ivpb) 1 gm in 100 mls @ 100 mls/hr IVPB Q8 [facility] PRN Reason: Protocol Stop: 01/09/17 13:09 Last Admin: 01/03/17 14:44 Dose: 100 mls/hr Levothyroxine Sodium (Synthroid) 100 mcg PO 0600 [facility] Last Admin: 01/03/17 08:46 Dose: 100 mcg Metoclopramide HCl (Reglan) 10 mg IVP Q6 PRN PRN Reason: Nausea/Vomiting Ondansetron HCl (Zofran Inj) 4 mg IVP Q4H PRN PRN Reason: Nausea/Vomiting Oxycodone/Acetaminophen (Percocet 5/325 Mg Tab) 1 tab PO Q4H PRN PRN Reason: Pain, severe (8-10) Stop: 01/06/17 09:14 Pantoprazole Sodium (Protonix Inj) 40 mg IVP DAILY [facility] Last Admin: 01/03/17 10:27 Dose: 40 mg Polyethylene Glycol (Miralax) 17 gm PO BID [facility] Last Admin: 01/03/17 17:19 Dose: 17 gm - Labs Labs: 01/03/17 06:50 01/03/17 06:50 PT 12.5 Seconds (9.9-11.8) H 12/29/16 18:00 INR 1.16 (0.93-1.08) H 12/29/16 18:00 APTT 28.0 Seconds (23.7-30.8) 12/29/16 18:00 - Constitutional Appears: Well - Head Exam Head Exam: ATRAUMATIC, NORMAL INSPECTION, NORMOCEPHALIC - Eye Exam Eye Exam: EOMI, Normal appearance, PERRL Pupil Exam: NORMAL ACCOMODATION, PERRL - ENT Exam ENT Exam: Mucous Membranes Moist, Normal Exam - Neck Exam Neck Exam: Full ROM, Normal Inspection. absent: Lymphadenopathy - Respiratory Exam Respiratory Exam: Clear to Ausculation Bilateral, NORMAL BREATHING PATTERN - Cardiovascular Exam Cardiovascular Exam: REGULAR RHYTHM, +S1, +S2. absent: Murmur - GI/Abdominal Exam GI & Abdominal Exam: Soft, Normal Bowel Sounds. absent: Tenderness - Rectal Exam Rectal Exam: NORMAL INSPECTION - Exam Exam: Circumcision, NORMAL INSPECTION External exam: NORMAL EXTERNAL EXAM Speculum exam: NORMAL SPECULUM EXAM Bimanual exam: NORMAL BIMANUAL EXAM - Extremities Exam Extremities Exam: Full ROM, Normal Capillary Refill, Normal Inspection. absent : Joint Swelling, Pedal Edema - Back Exam Back Exam: NORMAL INSPECTION - Neurological Exam Neurological Exam: Alert, Awake, CN II-XII Intact, Normal Gait, Oriented x3 - Psychiatric Exam Psychiatric exam: Normal Affect, Normal Mood - Skin Skin Exam: Dry, Intact, Normal Color, Warm Assessment and Plan (1) Sepsis Status: Acute (2) Abdominal pain Status: Acute (3) Cholecystitis Status: Acute - Assessment and Plan (Free Text) Plan: ABX CK PATH
[2017-01-03] MEDS: Oxycodone/Acetaminophen 5/325 mg Tab PO PRN (22:36)
[2017-01-04] MEDS: Meropenem 1g/NS 100mL IVPB 1 GM/100 ML PIGGYBACK IVPB SCH (05:36)
[2017-01-04] MEDS: Benzocaine/Menthol (Cepacol) Lozenge MT PRN (05:52)
[2017-01-04] MEDS: Oxycodone/Acetaminophen 5/325 mg Tab PO PRN (06:14)
[2017-01-04 07:13] LABS: HEMATOCRIT 32.6 % (36.0-48.0); MEAN CELL VOLUME 99.4 fL (80.0-105.0); MEAN CORPUSCULAR HEMOGLOBIN 33.2 pg (25.0-35.0); MEAN CORPUSCULAR HGB CONC 33.4 g/dl (31.0-37.0); RED CELL DISTRIBUTION WIDTH 12.4 % (11.5-14.5); WHITE BLOOD COUNT 6.8 10^3/ul (4.5-11.0)
[2017-01-04 07:17] LABS: IRON 44 ug/dL (45-180)
[2017-01-04 07:23] LABS: BLOOD UREA NITROGEN 8 mg/dL (7-21); CALCIUM 8.8 mg/dL (8.4-10.5); CARBON DIOXIDE 30 mmol/L (21-33); CHLORIDE 102 mmol/L (98-107); CHOLESTEROL 159 mg/dL (130-200); GFR AFRICAN-AMERICAN > 60; GLUCOSE,RANDOM 93 mg/dL (70-110); POTASSIUM 4.1 mmol/L (3.6-5.0); SODIUM 139 mmol/L (132-148)
[2017-01-04] MEDS: Levothyroxine 100 MCG TAB PO SCH (07:58)
[2017-01-04 08:04] VITALS: BP 104/67; PULSE 60; RESP 16; TEMP 98.5
--- NOTE | 2017-01-04 08:26 | CP.PCM.PN ---
Subjective - Date & Time of Evaluation Date of Evaluation: 01/04/17 Time of Evaluation: 06:45 - Subjective Subjective: Isidro Fregoso D.O. PGY-1, General Surgery Progress Note, Dr. Harris Blandon. 61 year old female with acute cholecystitis, s/p lap ayanna with IOC POD#3. Patient was seen and examined at bedside with surgical team. Patient continues to improve, is optimistic today and can't wait to leave the hospital. Denies any N/V/C/D/fevers/chills or other complaints other than mild post surgical pain which is well controlled with current regimen. Objective - Vital Signs/Intake and Output Vital Signs (last 24 hours): Temp Pulse Resp BP Pulse Ox 98.5 F 60 16 104/67 97 01/04/17 07:30 01/04/17 07:30 01/04/17 07:30 01/04/17 07:30 01/04/17 07:30 Intake and Output: 01/04/17 01/04/17 06:59 18:59 Intake Total 1740 Balance 1740 - Medications Medications: Current Medications Benzocaine/Menthol (Cepacol Sore Throat) 1 johnny MT Q2H PRN PRN Reason: Sore Throat Last Admin: 01/04/17 05:52 Dose: 1 johnny Enoxaparin Sodium (Lovenox) 40 mg SC DAILY [facility] PRN Reason: Protocol Last Admin: 01/03/17 10:30 Dose: 40 mg Meropenem 1g/NS 100mL IVPB (Meropenem 1g/Ns 100ml Ivpb) 1 gm in 100 mls @ 100 mls/hr IVPB Q8 [facility] PRN Reason: Protocol Stop: 01/09/17 13:09 Last Admin: 01/04/17 05:36 Dose: 100 mls/hr Levothyroxine Sodium (Synthroid) 100 mcg PO 0600 [facility] Last Admin: 01/04/17 07:58 Dose: 100 mcg Metoclopramide HCl (Reglan) 10 mg IVP Q6 PRN PRN Reason: Nausea/Vomiting Ondansetron HCl (Zofran Inj) 4 mg IVP Q4H PRN PRN Reason: Nausea/Vomiting Oxycodone/Acetaminophen (Percocet 5/325 Mg Tab) 1 tab PO Q4H PRN PRN Reason: Pain, severe (8-10) Stop: 01/06/17 09:14 Last Admin: 01/04/17 06:14 Dose: 1 tab Pantoprazole Sodium (Protonix Inj) 40 mg IVP DAILY [facility] Last Admin: 01/03/17 10:27 Dose: 40 mg Polyethylene Glycol (Miralax) 17 gm PO BID [facility] Last Admin: 01/03/17 17:19 Dose: 17 gm - Labs Labs: 01/04/17 06:45 01/04/17 06:45 PT 12.5 Seconds (9.9-11.8) H 12/29/16 18:00 INR 1.16 (0.93-1.08) H 12/29/16 18:00 APTT 28.0 Seconds (23.7-30.8) 12/29/16 18:00 - Constitutional Appears: Well, No Acute Distress - Head Exam Head Exam: ATRAUMATIC, NORMOCEPHALIC - Eye Exam Eye Exam: EOMI, Normal appearance - ENT Exam ENT Exam: Mucous Membranes Moist - Respiratory Exam Respiratory Exam: absent: Accessory Muscle Use, Respiratory Distress - Cardiovascular Exam Cardiovascular Exam: RRR - GI/Abdominal Exam GI & Abdominal Exam: Soft, Tenderness (mild), Normal Bowel Sounds. absent: Distended Additional comments: no erythema or other abnormal appearance of post surgical sites - Extremities Exam Extremities Exam: absent: Calf Tenderness - Neurological Exam Neurological Exam: Alert, Awake, Oriented x3 - Skin Skin Exam: Dry, Warm Assessment and Plan - Assessment and Plan (Free Text) Assessment: 61 year old female with acute cholecystitis, s/p lap ayanna with IOC POD#3 Plan: Doing well with diet and ambulating Surgical sites healing well Ok to D/C per surgery, follow up with Dr. Iglesias in 1-2 weeks Will discuss with attending physician. Thank you for the pleasure of participating in the care of this patient.
[2017-01-04] MEDS: POLYETHYLENE GLYCOL 3350 17 GM/Dose PACKET PO SCH (10:01)
[2017-01-04 12:43] LABS: FOLATE 9.6 ng/mL
--- NOTE | 2017-01-04 15:52 | CP.PCM.PN ---
Subjective - Date & Time of Evaluation Date of Evaluation: 01/04/17 Time of Evaluation: 09:40 - Subjective Subjective: doing well Objective - Vital Signs/Intake and Output Vital Signs (last 24 hours): Temp Pulse Resp BP Pulse Ox 98.5 F 60 16 104/67 97 01/04/17 07:30 01/04/17 07:30 01/04/17 07:30 01/04/17 07:30 01/04/17 07:30 Intake and Output: 01/04/17 01/04/17 06:59 18:59 Intake Total 1740 Balance 1740 - Labs Labs: 01/04/17 06:45 01/04/17 06:45 PT 12.5 Seconds (9.9-11.8) H 12/29/16 18:00 INR 1.16 (0.93-1.08) H 12/29/16 18:00 APTT 28.0 Seconds (23.7-30.8) 12/29/16 18:00 - Constitutional Appears: Well - Head Exam Head Exam: ATRAUMATIC, NORMAL INSPECTION, NORMOCEPHALIC - Eye Exam Eye Exam: EOMI, Normal appearance, PERRL Pupil Exam: NORMAL ACCOMODATION, PERRL - ENT Exam ENT Exam: Mucous Membranes Moist, Normal Exam - Neck Exam Neck Exam: Full ROM, Normal Inspection. absent: Lymphadenopathy - Respiratory Exam Respiratory Exam: Clear to Ausculation Bilateral, NORMAL BREATHING PATTERN - Cardiovascular Exam Cardiovascular Exam: REGULAR RHYTHM, +S1, +S2. absent: Murmur - GI/Abdominal Exam GI & Abdominal Exam: Soft, Normal Bowel Sounds. absent: Tenderness - Rectal Exam Rectal Exam: NORMAL INSPECTION - Exam Exam: Circumcision, NORMAL INSPECTION External exam: NORMAL EXTERNAL EXAM Speculum exam: NORMAL SPECULUM EXAM Bimanual exam: NORMAL BIMANUAL EXAM - Extremities Exam Extremities Exam: Full ROM, Normal Capillary Refill, Normal Inspection. absent : Joint Swelling, Pedal Edema - Back Exam Back Exam: NORMAL INSPECTION - Neurological Exam Neurological Exam: Alert, Awake, CN II-XII Intact, Normal Gait, Oriented x3 - Psychiatric Exam Psychiatric exam: Normal Affect, Normal Mood - Skin Skin Exam: Dry, Intact, Normal Color, Warm Assessment and Plan (1) Sepsis Status: Acute (2) Abdominal pain Status: Acute (3) Cholecystitis Status: Acute - Assessment and Plan (Free Text) Plan: off of abx doing well d/w pmd
--- NOTE | 2017-01-05 23:30 | CP.PCM.PN ---
Subjective - Date & Time of Evaluation Date of Evaluation: 01/03/17 Time of Evaluation: 13:00 - Subjective Subjective: pt is seen and examined in her room . looking grat , tolerated lequid food , getting pain meds , s/p cholecystectmy . , pod 2 . no n.v. d Objective - Vital Signs/Intake and Output Vital Signs (last 24 hours): Temp Pulse Resp BP Pulse Ox 98 F 82 20 118/74 97 01/03/17 16:00 01/03/17 16:00 01/03/17 16:00 01/03/17 16:00 01/03/17 16:00 Intake and Output: 01/03/17 01/04/17 18:59 06:59 Intake Total 720 1080 Balance 720 1080 - Medications Medications: Current Medications Benzocaine/Menthol (Cepacol Sore Throat) 1 johnny MT Q2H PRN PRN Reason: Sore Throat Last Admin: 01/03/17 14:55 Dose: 1 johnny Enoxaparin Sodium (Lovenox) 40 mg SC DAILY [facility] PRN Reason: Protocol Last Admin: 01/03/17 10:30 Dose: 40 mg Meropenem 1g/NS 100mL IVPB (Meropenem 1g/Ns 100ml Ivpb) 1 gm in 100 mls @ 100 mls/hr IVPB Q8 [facility] PRN Reason: Protocol Stop: 01/09/17 13:09 Last Admin: 01/03/17 21:58 Dose: 100 mls/hr Levothyroxine Sodium (Synthroid) 100 mcg PO 0600 [facility] Last Admin: 01/03/17 08:46 Dose: 100 mcg Metoclopramide HCl (Reglan) 10 mg IVP Q6 PRN PRN Reason: Nausea/Vomiting Ondansetron HCl (Zofran Inj) 4 mg IVP Q4H PRN PRN Reason: Nausea/Vomiting Oxycodone/Acetaminophen (Percocet 5/325 Mg Tab) 1 tab PO Q4H PRN PRN Reason: Pain, severe (8-10) Stop: 01/06/17 09:14 Last Admin: 01/03/17 22:36 Dose: 1 tab Pantoprazole Sodium (Protonix Inj) 40 mg IVP DAILY [facility] Last Admin: 01/03/17 10:27 Dose: 40 mg Polyethylene Glycol (Miralax) 17 gm PO BID [facility] Last Admin: 01/03/17 17:19 Dose: 17 gm - Labs Labs: 01/03/17 06:50 01/03/17 06:50 PT 12.5 Seconds (9.9-11.8) H 12/29/16 18:00 INR 1.16 (0.93-1.08) H 12/29/16 18:00 APTT 28.0 Seconds (23.7-30.8) 12/29/16 18:00 - Constitutional Appears: Well - Head Exam Head Exam: ATRAUMATIC, NORMAL INSPECTION, NORMOCEPHALIC - Eye Exam Eye Exam: EOMI, Normal appearance, PERRL Pupil Exam: NORMAL ACCOMODATION, PERRL - ENT Exam ENT Exam: Mucous Membranes Moist, Normal Exam - Neck Exam Neck Exam: Full ROM, Normal Inspection. absent: Lymphadenopathy - Respiratory Exam Respiratory Exam: Clear to Ausculation Bilateral, NORMAL BREATHING PATTERN - Cardiovascular Exam Cardiovascular Exam: REGULAR RHYTHM, +S1, +S2. absent: Murmur - GI/Abdominal Exam GI & Abdominal Exam: Soft, Diminished Bowel Sounds, Normal Bowel Sounds. absent : Tenderness - Rectal Exam Rectal Exam: Deferred, NORMAL INSPECTION - Exam Exam: Circumcision, NORMAL INSPECTION External exam: NORMAL EXTERNAL EXAM Speculum exam: NORMAL SPECULUM EXAM Bimanual exam: NORMAL BIMANUAL EXAM - Extremities Exam Extremities Exam: Full ROM, Normal Capillary Refill, Normal Inspection. absent : Joint Swelling, Pedal Edema - Back Exam Back Exam: NORMAL INSPECTION - Neurological Exam Neurological Exam: Alert, Awake, CN II-XII Intact, Normal Gait, Oriented x3 - Psychiatric Exam Psychiatric exam: Normal Affect, Normal Mood - Skin Skin Exam: Dry, Intact, Normal Color, Warm Assessment and Plan - Assessment and Plan (Free Text) Assessment: 61 years old lady with h/o depression, htn , hypercholestrolemia , [place] [facility] [place] , found to have choleoletiasis . s/p cholecystectomy , tolerating food , pain management , lab oob . pt ot
--- NOTE | 2017-02-07 07:38 | DS ---
CHIEF COMPLAINT: Intractable abdominal pain, nausea and vomiting. HISTORY OF PRESENT ILLNESS: Ms. Ac Parker is 61-year-old female, my private patient with no significant abdominal surgical history, history of hypercholesterolemia came to the emergency room with a right-sided abdominal pain. She states getting constant and getting progressively worse. The patient says she did not eat yesterday. She reports that she took Pepto-Bismol, Tums, the patient did work yesterday. Today, she has intractable abdominal pain. We admitted the patient. Did CAT scan of the abdomen and pelvis. MRCP done. GI consult followed with Dr. Siu, Dr. Santos. Dr. Iglesias saw the patient, did surgery. She improved, cholecystectomy done, got better, discharged home with the medication. Follow up in my office for abnormal liver function test. PAST MEDICAL HISTORY: Hypothyroidism, thyroidectomy and tonsillectomy. FAMILY HISTORY: Father and mother, noncontributory. HABITS: Never smoke. No drug or no alcohol. ALLERGIES: THE PATIENT IS ALLERGIC TO PENICILLIN. HOME MEDICATION: Levothyroxine. REVIEW OF SYSTEMS: The patient seen and examined on the bedside, looks comfortable. No nausea or vomiting or diarrhea. No hematuria or hematochezia. No swelling of the leg. No chest pain. No palpitation. No headache or dizziness. Looking better. No shortness of breath. PHYSICAL EXAMINATION: VITAL SIGNS: Temperature 98.6, pulse 60, respiratory rate 16, blood pressure 120/80 and pulse oximetry 97%. HEENT: Head normocephalic and atraumatic. Eyes; PERRLA. Extraocular muscles intact. Conjunctivae clear. Nose patent. Mucous membrane moist. NECK: Supple. No carotid bruit or thyromegaly. CHEST: Bilaterally symmetrical. HEART: S1 and S2, positive. LUNGS: Clear to auscultation. ABDOMEN: Soft. Bowel sounds present. No organomegaly. EXTREMITIES: No edema. No cyanosis. NEUROLOGIC: The patient is awake and alert. Moving all 4 extremities. No focal deficit. LABORATORY DATA: Sodium 139, potassium 4.1, BUN 8, creatinine 0.6 and glucose 93. ASSESSMENT AND PLAN: Ms. Ac Parker is 61-year-old lady with sepsis, got antibiotics by Dr. Santos. Abdominal pain got better, cholecystectomy, off the antibiotics, doing better. Abnormal liver function is better, trending down. Tolerated food. History of depression, hypertension, hypercholesterolemia, cholelithiasis, cholecystectomy. Lashell Higuera MD [id number]
--- NOTE | 2017-02-07 14:33 | PN ---
SUBJECTIVE: The patient is seen and examined on the bedside. Looks comfortable , was getting ready to go for surgery, cholecystectomy, getting attacks of right upper quadrant abdominal pain, no fever, no chills, no hematuria, no hematochezia. No headache, no dizziness. Ready to go for surgery. PHYSICAL EXAMINATION: VITAL SIGNS: Temperature is 98.6, blood pressure 104/65, pulse 63, respiratory rate 20. HEAD: Normocephalic, atraumatic. EYES: PERRLA. Extraocular muscles intact. Conjunctivae clear. Nose patent. Mucous membranes moist. NECK: Supple. No carotid bruits, JVD, thyromegaly. CHEST: Bilaterally symmetrical. HEART: S1, S2 positive. LUNGS: Clear to auscultation. ABDOMEN: Soft. Bowel sounds positive. No organomegaly. EXTREMITIES: No edema, no cyanosis. NEUROLOGIC: The patient is awake and alert, moving all 4 ext, no focal deficits. LABORATORY DATA: White blood cells 9.2, hemoglobin 11. hematocrit 34. platelets 176. BUN 70. Sodium 137, potassium 3. BUN 10, creatinine 0.7, AST 22 , ALT 25. Alkaline phosphatase 63. ASSESSMENT AND PLAN: The patient is a [id number] with acute onset of abdominal pain, mainly right upper quadrant, has cholecystitis, biliary colic with leukocytosis, urinary tract infection, cholelithiasis. Did magnetic resonance cholangiopancreatography and that showed multiple gallstones, common bile duct was okay. Plan was to do HIDA scan but finally decided to go for surgery, not in need of HIDA scan. The patient has history of depression, anxiety, but stable. The patient is n.p.o., getting IV antibiotics, meropenem, PPI, Dilaudid for pain. Gastrointestinal and deep venous thrombosis prophylaxis. Repeat labs. Will follow up. MD TARAS Gamboa
--- NOTE | 2017-02-07 15:28 | PN ---
ADDENDUM: SUBJECTIVE: The patient was seen and evaluated earlier today. This is an addendum to the GI progress report dictated by Tala Cotton APN. The patient was seen and evaluated just before going for surgery. LABORATORY DATA: LFTs remain normal except for total bilirubin ____. Direct bilirubin was improved. PLAN: Continue the NG tube antibiotics. Will continue to closely follow up her care. Thank you very much for allowing us to participate in the care of the patient. Kamila Siu MD [facility]ENTERBrooklynn
--- NOTE | 2017-03-26 10:12 | OP ---
PROCEDURE DATE: 01/01/2017 PREOPERATIVE DIAGNOSES: Acute cholecystitis and cholelithiasis. POSTOPERATIVE DIAGNOSES: Acute cholecystitis and cholelithiasis. OPERATION PERFORMED: Laparoscopic cholecystectomy, intraoperative cholangiogram, and lysis of adhesions. SURGEON: Dr. Dallas Iglesias. DESCRIPTION OF PROCEDURE: In the operating room, the patient was identified by name of the procedure, laterality, by name and number. The abdomen was prepped and draped in the usual manner, and after successful time-out, the operation began. The prepped and draped area was accessed through a Veress needle and a supraumbilical incision that was dissected down to the fascia where Veress needle was inserted, it was unremarkable and 2.5 liters were given to a pressure about 10 and the Visiport was placed to gain the access for the abdomen. The xiphoid 5 and two lateral 5s were placed, and the dissection began. Lysis of adhesions began on the inflamed omentum that was pulled off the gallbladder. It was aspirated, emptied and drawn up with Prestige about the fundus and the infundibulum and peritoneum on the distal gallbladder was pulled down exposing the cystic duct and artery. The view of safety was seen nicely. Cystic artery was circumscribed as was the duct; it was clipped and opened. A cholangiogram was obtained that was unremarkable, and the catheter removed. The cystic duct was doubly clipped as was the artery/ gallbladder taken off the liver bed using the hook and the cautery at 20. The gallbladder was placed in the bag and removed through the umbilicus. The abdomen was copiously irrigated and dried. Some adhesions were taken off the liver using the Harmonic. The look around was unremarkable, and CO2 was removed. The incision was clean and dry. The umbilicus was closed with a mattress stitch of 0 Vicryl using stitch. The wound was injected with Marcaine, sealed with Vicryl followed by PDS for subcuticular wound that was closed with Dermabond. The patient was taken to the recovery room in good condition after sponge and needle counts declared correct. Dallas Iglesias MD
== END 2017-01-04 13:00 | disposition home or self-care (01) | DRG 854 ==
LOC: ED 17:40 → ERH 19:57 → 2RNO 23:09 → 5RSO 01-02 16:33
PROVIDERS: ADMIT Internal Medicine; ATTEND Internal Medicine
PROC: BF131ZZ Fluoroscopy of Gallbladder and Bile Ducts using Low Osmolar Contrast (ICD-10-PCS; 2017-01-01)
PROC: 0FT44ZZ Resection of Gallbladder, Percutaneous Endoscopic Approach (ICD-10-PCS; principal; 2017-01-01 15:30)
DX: A41.9 Sepsis, unspecified organism (principal); K80.00 Calculus of gallbladder with acute cholecystitis without obstruction; N30.90 Cystitis, unspecified without hematuria; B96.20 Unspecified Escherichia coli [E. coli] as the cause of diseases classified elsewhere; E87.2 Acidosis; I10 Essential (primary) hypertension; E78.00 Pure hypercholesterolemia, unspecified; E89.0 Postprocedural hypothyroidism; E87.6 Hypokalemia; N28.1 Cyst of kidney, acquired; F43.10 Post-traumatic stress disorder, unspecified; F32.9 Major depressive disorder, single episode, unspecified; D64.9 Anemia, unspecified; R73.9 Hyperglycemia, unspecified; M19.90 Unspecified osteoarthritis, unspecified site; Z85.850 Personal history of malignant neoplasm of thyroid; Z88.0 Allergy status to penicillin